=== PATIENT | female | born 1940 | race Caucasian/White ===

== ENCOUNTER 2019-06-25 19:33 | Observation (INO) ==
[2019-06-25 20:18] LABS: Basophils # (auto) 0.01 K/uL (0-0.2); Basophils % (auto) 0.1 %; Eosinophils # (auto) 0.15 K/uL (0-0.5); Eosinophils % (auto) 1.1 %; Hematocrit (blood only) 34.4 % (37-47); Immature Granulocytes # (auto) 0.03 K/uL (0.00-0.02); Immature Granulocytes % (auto) 0.2 %; Lymphocytes # (auto) 3.46 K/uL (1.2-3.4); Lymphocytes % (auto) 25.4 %; Mean Corpuscular Hemoglobin 35.9 pg (25-34); Mean Corpuscular Hgb Conc 34.9 g/dL (32-36); Mean Platelet Volume 10.1 fL (7.4-10.4); Monocytes # (auto) 1.78 K/uL (0.11-0.59); Monocytes % (auto) 13.1 %; Neutrophils # (auto) 8.17 K/uL (1.4-6.5); Neutrophils % (auto) 60.1 %; Platelet Count 190 K/uL (130-400); RDW Coefficient of Variation 14.3 % (11.5-14.5); RDW Standard Deviation 53.9 fL (36.4-46.3); Red Blood Count 3.34 M/uL (4.2-5.4)
--- NOTE | 2019-06-25 20:24 | Emergency Department Note ---
Entered by Jonathan Gonzales acting as a scribe for Cecil Rios MD History of Present Illness General Chief complaint: Foot Injury/Pain Stated complaint: RED,SWOLLEN FOOT, POSSIBLE INFECTION Time Seen by Provider: 06/25/19 19:44 Source: patient and family () Limitations: no limitations History of Present Illness Location: foot (left) Pain Consistency: + constant Quality: + other (red and sore) Associated symptoms: + denies other symptoms (abdominal pain) and + cough; no chest pain, no fever/chills (feveers) and no shortness of breath The patient is a 79 year old female who presents to the Emergency Room with complaints of constant red foot redness. The patient's states the patient has peripheral neuropathy and notes it is idiopathic. The patient states she does not feel her legs. She notes she has been walking a lot. She states she had some skin that was sloughing off and notes she peeled it off. She states she has been using Neosporin on her left leg. She states she has been coughing. She states she has a permanent UTI and notes she was taken off antibiotics because her physician was worried she would get C-Diff. She states she has never had C- Diff before. The patient states she has A-Fib, but she was told to stop taking Eliquis because she has frequent falls. The patient denies having fevers, abdominal pain, chest pain, and SOB. She states she has an appointment with her hotel desk clerk on Thursday. She states she intermittently gets short-lived hot flashes and states that has been going on for a while. She states she had CHF a year and half ago. Home Medications Home Medications Medication Instructions Recorded Confirmed Type albuterol sulfate 2 puff INHALATION QID 06/25/19 06/25/19 History aspirin [Aspir-Low] 81 mg PO DAILY 06/25/19 06/25/19 History conjugated estrogens [Premarin] 0.625 mg PO DAILY 06/25/19 06/25/19 History diltiazem HCl [Cartia XT] 120 mg PO DAILY 06/25/19 06/25/19 History furosemide 20 mg PO BID 06/25/19 06/25/19 History lisinopril [Zestril] 5 mg PO DAILY 06/25/19 06/25/19 History magnesium oxide 400 mg PO BID 06/25/19 06/25/19 History metoprolol succinate [Toprol XL] 25 mg PO DAILY 06/25/19 06/25/19 History omeprazole 20 mg PO DAILY 06/25/19 06/25/19 History polysaccharide iron complex 150 mg PO DAILY 06/25/19 06/25/19 History [Ferrex 150] ropinirole [Requip] 0.5 mg PO HS 06/25/19 06/25/19 History tramadol [Ultram] 50 mg PO Q6 06/25/19 06/25/19 History Allergies Allergy/AdvReac Type Severity Reaction Status Date / Time Penicillins Allergy Unknown RASH Verified 06/25/19 20:27 Sulfa (Sulfonamide Allergy Unknown RASH Verified 06/25/19 20:27 Antibiotics) oxycodone AdvReac Unknown "A BAD Verified 06/25/19 20:27 TRIP" Urea Allergy Unknown RASH Uncoded 06/25/19 20:27 Past Med/Surg History Medical History Asthma (Chronic) Hypertension (Chronic) Osteoarthritis (Chronic) Peripheral neuropathy Heath syndrome (Chronic) Surgical History History of hysterectomy (Chronic) History of laparotomy (Chronic) "for ruptured ovarian cyst" History of tubal ligation (Chronic) Social History 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 and A total of 10 systems reviewed and were otherwise negative Physical Exam Vital Signs Vital Signs - 24 hr 06/25/19 19:36 06/25/19 21:16 Temperature 36.9 C Temperature Source Oral Pulse Rate 100 H Pulse Rate [Bilateral] 88 Pulse Rhythm [Bilateral] Regular Pulse Strength [Bilateral] Normal Respiratory Rate 18 18 Respiratory Effort / Characteristics Non-Labored Spontaneous Non-Labored Spontaneous Respiratory Depth Normal Normal Respiratory Pattern Regular Regular Blood Pressure 146/81 H Blood Pressure [Left Arm] 124/68 Blood Pressure Mean 102 Blood Pressure Mean [Left Arm] 86 Blood Pressure Position Sitting Blood Pressure Position [Left Arm] Lying Pulse Oximetry 98 98 Oxygen Delivery Method Room Air Room Air Sepsis Recent Fever Within 48 Hours No Sepsis Action Taken by Nursing No Action Required General: Non-ill appearing older female in no acute distress. HEENT: Normal cephalic atraumatic. Pupils are equal round and reactive to light. Extraocular movements are intact. Oropharynx is pink with moist mucous membranes. No swelling of the mouth lips or tongue. Neck: Supple with a midline trachea. No meningeal signs or stiffness, no JVD or bruits. No Stridor. Chest: Clear to auscultation bilaterally. No wheezes or rhonchi. No increased work of breathing. Heart: regular rate and rhythm. Abdomen: Soft nontender, nondistended without rebound guarding or rigidity. Extremities: No cyanosis clubbing or edema. No calf tenderness or asymmetry. Left great toe has a large black scab on the tip of the foot that is red and swollen into the calf. Good cap refill. Spine/Back. Non tender to palpation. No CVA tenderness Skin: Good turgor without rashes. Neurologic exam: Cranial nerves two through 12 are intact. Motor and sensation are intact and symmetrical throughout. Course Course 1944: The patient was evaluated in room A11B, and a complete history and phys ical examination were performed. 2051: I spoke to the patient's who is a physician. He agrees with the plan. 2104: I discussed the patient's case with Dr. Mcneil - [facility]. He will evaluate the patient for further management Administered Medications Estrogens Conjugated (Premarin) 0.625 mg PO DAILY ZULEIKA Stop: 07/25/19 22:44 Last Admin: 06/25/19 23:46 Dose: 0.625 mg Documented by: [id number] Ropinirole HCl (Requip) 0.5 mg PO HS ZULEIKA Stop: 07/25/19 22:44 Last Admin: 06/25/19 23:46 Dose: 0.5 mg Documented by: [id number] Tramadol HCl (Ultram) 50 mg PO Q6 PRN PRN Reason: pain Stop: 07/26/19 00:00 Last Admin: 06/25/19 23:52 Dose: 50 mg Documented by: [id number] Discontinued Medications Sodium Chloride (Nss 1000ml) 1,000 mls @ 999 mls/hr IV .Q1H1M ONE Stop: 06/25/19 21:56 Last Infusion: 06/25/19 22:10 Dose: 0 mls/hr Documented by: [id number] Admin: 06/25/19 21:09 Dose: 999 mls/hr Documented by: [id number] Cefepime HCl (Maxipime) 2,000 mg in 20 mls @ 5 mls/min IV NOW STA Stop: 06/25/19 21:01 Last Admin: 06/25/19 21:09 Dose: 5 mls/min Documented by: [id number] Medical Decision Making Differential Diagnosis Differential Diagnosis includes but is not limited to cellulitis, osteomyelitis, sepsis, DVT, and electrolyte or metabolic abnormality. Medical Records Attestation: I reviewed the patient's medical records. Home Medications Current Medication List: was personally reviewed by me Laboratory Data Attestation: I reviewed the patient's lab results. Result diagrams: 06/25/19 20:10 06/25/19 20:10 Lab Results 06/25/19 06/25/19 06/25/19 Range/Units 20:10 20:10 20:10 WBC 13.60 H (4.8-10.8) K/uL RBC 3.34 L (4.2-5.4) M/uL Hgb 12.0 (12.0-16.0) g/dL Hct 34.4 L (37-47) % MCV 103.0 H (80-100) fL MCH 35.9 H (25-34) pg MCHC 34.9 (32-36) g/dL RDW Std Deviation 53.9 H (36.4-46.3) fL RDW Coeff of Augie 14.3 (11.5-14.5) % Plt Count 190 (130-400) K/uL MPV 10.1 (7.4-10.4) fL Immature Gran % (Auto) 0.2 % Neut % (Auto) 60.1 % Lymph % (Auto) 25.4 % [place] % (Auto) 13.1 % Eos % (Auto) 1.1 % Baso % (Auto) 0.1 % Immature Gran # (Auto) 0.03 H (0.00-0.02) K/uL Neut # (Auto) 8.17 H (1.4-6.5) K/uL Lymph # (Auto) 3.46 H (1.2-3.4) K/uL [place] # (Auto) 1.78 H (0.11-0.59) K/uL Eos # (Auto) 0.15 (0-0.5) K/uL Baso # (Auto) 0.01 (0-0.2) K/uL PT 10.1 (9.0-12.0) Seconds INR 1.0 (0.9-1.1) APTT 22.5 (21.0-31.0) Seconds PTT Ratio 0.8 Sodium 135 L (136-145) mmol/L Potassium 3.8 (3.5-5.1) mmol/L Chloride 101 (98-107) mmol/L Carbon Dioxide 26 (21-32) mmol/L Anion Gap 8.0 (3-11) BUN 13 (7-18) mg/dl Creatinine 1.12 (0.6-1.2) mg/dl Est Cr Clr Drug Dosing 37.4 ml/min Est GFR ( Amer) 54.5 Est GFR (Non-Af Amer) 47.0 BUN/Creatinine Ratio 11.7 (10-20) Glucose 102 H (70-99) mg/dl Lactate (0.4-2.0) mmol/L Calcium 8.2 L (8.5-10.1) mg/dl Magnesium 1.7 L (1.8-2.4) mg/dl Total Bilirubin 0.4 (0.2-1) mg/dl AST 16 (15-37) U/L ALT 12 (12-78) U/L Alkaline Phosphatase 123 H (45-117) U/L Total Protein 6.6 (6.4-8.2) gm/dl Albumin 2.7 L (3.4-5.0) gm/dl Globulin 3.9 (2.5-4.0) gm/dl Albumin/Globulin Ratio 0.7 L (0.9-2) /10/09 Range/Units 20:10 WBC (4.8-10.8) K/uL RBC (4.2-5.4) M/uL Hgb (12.0-16.0) g/dL Hct (37-47) % MCV (80-100) fL MCH (25-34) pg MCHC (32-36) g/dL RDW Std Deviation (36.4-46.3) fL RDW Coeff of Augie (11.5-14.5) % Plt Count (130-400) K/uL MPV (7.4-10.4) fL Immature Gran % (Auto) % Neut % (Auto) % Lymph % (Auto) % [place] % (Auto) % Eos % (Auto) % Baso % (Auto) % Immature Gran # (Auto) (0.00-0.02) K/uL Neut # (Auto) (1.4-6.5) K/uL Lymph # (Auto) (1.2-3.4) K/uL [place] # (Auto) (0.11-0.59) K/uL Eos # (Auto) (0-0.5) K/uL Baso # (Auto) (0-0.2) K/uL PT (9.0-12.0) Seconds INR (0.9-1.1) APTT (21.0-31.0) Seconds PTT Ratio Sodium (136-145) mmol/L Potassium (3.5-5.1) mmol/L Chloride (98-107) mmol/L Carbon Dioxide (21-32) mmol/L Anion Gap (3-11) BUN (7-18) mg/dl Creatinine (0.6-1.2) mg/dl Est Cr Clr Drug Dosing ml/min Est GFR ( Amer) Est GFR (Non-Af Amer) BUN/Creatinine Ratio (10-20) Glucose (70-99) mg/dl Lactate 2.1 H* (0.4-2.0) mmol/L Calcium (8.5-10.1) mg/dl Magnesium (1.8-2.4) mg/dl Total Bilirubin (0.2-1) mg/dl AST (15-37) U/L ALT (12-78) U/L Alkaline Phosphatase (45-117) U/L Total Protein (6.4-8.2) gm/dl Albumin (3.4-5.0) gm/dl Globulin (2.5-4.0) gm/dl Albumin/Globulin Ratio (0.9-2) Imaging Data Radiologist's Impression: Radiology results as stated below per my review and the radiologist's interpretation: XR foot LT min 3V routine CLINICAL HISTORY: eval for osteo left great toe. Left first toe pain. COMPARISON STUDY: None. FINDINGS: Mass or calcifications are noted. No acute fracture or dislocation within the left foot. There is diffuse soft tissue swelling within the lower leg and foot. Small plantar heel spur. The Lisfranc joint is well aligned. Soft tissue swelling within the first toe. No underlying bony destruction to suggest osteomyelitis. Moderate osteoarthritis at the first MTP joint. IMPRESSION: Soft tissue swelling within the left lower leg, foot, and first toe. No underlying bony destruction to suggest osteomyelitis. ACT 112: Negative or not required by law. Electronically signed by: Luis A Mata M.D. 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 eval for dvt COMPARISON STUDY: None. FINDINGS: There is normal compressibility, flow, and augmentation within the left lower extremity deep venous system. Subcutaneous edema within the left calf. IMPRESSION: No DVT within the left lower extremity. ACT 112: Negative or not required by law. Electronically signed by: Luis A Mata M.D. 06/25/2019 9:07 PM ECG Data Attestation: I personally reviewed and interpreted this ECG as follows: Rate (beats per minute): 87 ECG Intervals/blocks: + Normal QRS, + Normal QT, + Normal NE and + Normal QT-c ECG ST segments: no ST depression and no ST elevation ECG Findings: + PACs Comparison ECG Date: no prior available Blood Pressure Blood Pressure Findings: Elevated blood pressure Blood Pressure Disposition: further management by hospitalist [facility] Narrative This patient comes in as described above. She has a red swollen foot and leg w ith and also a large scab/eschar on the tip of her great toe. she has idiopathic neuropathy and cannot feel any of this and her who is a physician feels that she has been walking around with her shoe rubbing. She does not have any systemic complaints at present . She is on no blood thinners. She denies any fall or trauma. Given the redness and swelling. I was concerned for cellulitis osteomyelitis and possibly DVT as well I did order ultrasound as well as multiple blood testing and an EKG. She does have a history of A. fib in the past but she is not in A. fib now and has no ischemic changes. She does have an elevated white count as well as a mildly elevated lactic acid of 2.1. I did give her cefepime 2 g IV. She does have a penicillin allergy where she got a rash without anaphylaxis but her believes she has had cephalosporins without difficulty before. Her ultrasound of her leg does not show any evidence of DVT. Her x-ray of her foot does not show any definite osteomyelitis. Given her cellulitis and swelling as well as concern for deeper infection as well as elevated white count and lactic acid and concern for sepsis, I do think she needs to be admitted/observed. She was given IV saline bolus and I did consult the hospitalist to see her in the ER. Impression & Plan Sepsis, Cellulitis of left leg, Neuropathy, Left leg swelling Discharge Plan Visit Data *Final* Discharge Date/Time: 06/25/19 22:27 Chief Complaint: Foot Injury/Pain Stated Complaint: RED,SWOLLEN FOOT, POSSIBLE INFECTION ED Provider: Cecil Rios Discharge Problem: Sepsis, Cellulitis of left leg, Neuropathy, Left leg swelling Patient Disposition: Admitted As Inpatient Discharge Instructions Interventions: ED Discharge Assessment Last Done: 06/25/19 22:27 Discharge Problem: Sepsis Qualifiers: Sepsis type: sepsis due to unspecified organism Sepsis acute organ dysfunction status: unspecified Qualified Code(s): A41.9 - Sepsis, unspecified organism The scribe's documentation has been prepared under my direction and personally reviewed by me in its entirety. I confirm that the note above accurately reflects all work, treatment, procedures, and medical decision making performed by me.
[2019-06-25 20:29] LABS: Partial Thromboplastin Ratio 0.8; Partial Thromboplastin Time 22.5 Seconds (21.0-31.0); Prothrombin Time 10.1 Seconds (9.0-12.0)
[2019-06-25 20:35] LABS: Albumin Level 2.7 gm/dl (3.4-5.0); BUN Creatinine Ratio 11.7 (10-20); Calcium 8.2 mg/dl (8.5-10.1); Creatinine Clr Calc Pharmacy 37.4 ml/min; Est GFR (African American) 54.5; Magnesium 1.7 mg/dl (1.8-2.4); Potassium 3.8 mmol/L (3.5-5.1)
[2019-06-25 20:38] LABS: Albumin Globulin Ratio 0.7 (0.9-2); Bilirubin,Total 0.4 mg/dl (0.2-1); Globulin 3.9 gm/dl (2.5-4.0); Total Protein 6.6 gm/dl (6.4-8.2)
[2019-06-25] MEDS ORDERED: SODIUM CHLORIDE 0.9% 1000ML 1,000 ML IV ONE (20:56)
[2019-06-25] MEDS ORDERED: CEFEPIME 2,000 MG/20 ML VIAL IV STA (20:58)
--- NOTE | 2019-06-25 21:08 | Ultrasound Report ---
LEFT LOWER EXTREMITY VENOUS DOPPLER HISTORY: Left leg swelling. eval for dvt COMPARISON STUDY: None. FINDINGS: There is normal compressibility, flow, and augmentation within the left lower extremity vicky p venous system. Subcutaneous edema within the left calf. IMPRESSION: No DVT within the left lower extremity. ACT 112: Negative or not required by law. Electronically signed by: Luis A Mata M.D. 06/25/2019 9:07 PM
--- NOTE | 2019-06-25 21:42 | XRay Report ---
XR foot LT min 3V routine CLINICAL HISTORY: eval for osteo left great toe. Left first toe pain. COMPARISON STUDY: None. FINDINGS: Mass or calcifications are noted. No acute fracture or dislocation within the left foot. Th ere is diffuse soft tissue swelling within the lower leg and foot. Small plantar heel spur. The Lisfr anc joint is well aligned. Soft tissue swelling within the first toe. No underlying bony destruction to suggest osteomyelitis. Moderate osteoarthritis at the first MTP joint. IMPRESSION: Soft tissue swelling within the left lower leg, foot, and first toe. No underlying bony destruction to suggest osteomyelitis. ACT 112: Negative or not required by law. Electronically signed by: Luis A Mata M.D. 06/25/2019 9:41 PM
[2019-06-25] MEDS ORDERED: ONDANSETRON INJ 2 MG/ML 2 ML VIAL IV PRN (22:45)
[2019-06-25] MEDS ORDERED: POLYETHYLENE (MIRALAX) 17 GM PACK PO PRN (22:45)
--- NOTE | 2019-06-25 22:48 | History & Physical Report ---
Date of Service June 25, 2019 Assessment & Plan (1) Cellulitis of left le-year-old female with history of hypertension, atrial fibrillation, CVA/TIA, osteoarthritis, lumbar disc degeneration, idiopathic bilateral neuropathy presenting with 1 week of swelling redness of her left lower extremity. She has had a nonhealing ulcer on her left first toe for approximately 1 month. Cellulitis left lower extremity Patient was initially tachycardic with a lactate of 2.1, white count of 13.6. Patient was afebrile, nontoxic. Received fluids in the ED. Patient does not appear septic or bacteremic, follow blood cultures nonetheless, repeat lactate with morning labs No history of diabetes, no pseudomonal coverage necessary at this time at this time Received cefepime in the ED, will continue with ceftriaxone in the morning Wound care consult, wound cultures. Broaden coverage if not improving Chronic nonhealing ulcer, eschar left first toe Patient has a history of atrial fibrillation, recently stopped Eliquis secondary to chronic epistaxis Ordered articular Dopplers to rule out arterial stenosis Venous Dopplers negative for DVT Foot x-ray not concerning for osteomyelitis History of atrial fibrillation Continue aspirin, diltiazem, metoprolol GERD Continue omeprazole Restless leg/neuropathy bilateral lower extremity Continue Requip, Ultram Asthma Continue albuterol as needed DVT prophylaxis Deferring chemical prophylaxis considering history of chronic epistaxis Continue SCDs CODE STATUS Full Diet Heart healthy (2) Hypertension: (3) Heath syndrome: (4) Osteoarthritis: (5) Peripheral neuropathy: History of Present Illness Primary Care Provider: Haresh Mirza MD 79-year-old female with history of atrial fibrillation, CVA/TIA, chronic epistaxis, idiopathic neuropathy, osteoarthritis, lumbar disc degeneration, hypertension presents with redness, warmth and swelling of her left lower extremity. This started approximately 1 week ago and became significantly red and swollen over the past day. She states that for the past month she has had a ulcer on the distal end of her left big toe. She has been cleaning it and tending to it, but has not had any treatment. Patient denies any pain at the site and she denies any fevers over the course of the week. She has chronic neuropathy in bilateral lower extremitiespredominantly numbness with some tingling. The patient does note that she recently stopped Eliquis, approximately 6 months ago secondary to chronic epistaxis. She is been taking aspirin. Allergies Allergy/AdvReac Type Severity Reaction Status Date / Time Penicillins Allergy Unknown RASH Verified 06/25/19 20:27 Sulfa (Sulfonamide Allergy Unknown RASH Verified 06/25/19 20:27 Antibiotics) oxycodone AdvReac Unknown "A BAD Verified 06/25/19 20:27 TRIP" Urea Allergy Unknown RASH Uncoded 06/25/19 20:27 Home Medications Home Medications Medication Instructions Recorded Confirmed Type albuterol sulfate 2 puff INHALATION QID 06/25/19 06/25/19 History aspirin [Aspir-Low] 81 mg PO DAILY 06/25/19 06/25/19 History conjugated estrogens [Premarin] 0.625 mg PO DAILY 06/25/19 06/25/19 History diltiazem HCl [Cartia XT] 120 mg PO DAILY 06/25/19 06/25/19 History furosemide 20 mg PO BID 06/25/19 06/25/19 History lisinopril [Zestril] 5 mg PO DAILY 06/25/19 06/25/19 History magnesium oxide 400 mg PO BID 06/25/19 06/25/19 History metoprolol succinate [Toprol XL] 25 mg PO DAILY 06/25/19 06/25/19 History omeprazole 20 mg PO DAILY 06/25/19 06/25/19 History polysaccharide iron complex 150 mg PO DAILY 06/25/19 06/25/19 History [Ferrex 150] ropinirole [Requip] 0.5 mg PO HS 06/25/19 06/25/19 History tramadol [Ultram] 50 mg PO Q6 06/25/19 06/25/19 History Past Med/Surg History Medical History Asthma (Chronic) Hypertension (Chronic) Osteoarthritis (Chronic) Peripheral neuropathy Heaht syndrome (Chronic) Surgical History History of hysterectomy (Chronic) History of laparotomy (Chronic) "for ruptured ovarian cyst" History of tubal ligation (Chronic) Social History 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 Beliefs That Will Affect Care: None Current Living Situation: Alone Feels Safe at Home: Yes Safety Concerns: Feels Safe At This Time Smoking Status: Former smoker Hx Alcohol Use: Yes Alcohol type: wine, hard liquor and other Hx Substance Use: No Review of Systems Constitutional: no fever, no chills and no sweats Ear, Nose, Mouth, Throat: no nasal congestion, no epistaxis and no sinus pain/pressure Respiratory: no cough, no dyspnea and no wheezing Cardiovascular: + edema; no chest pain and no palpitations Gastrointestinal: no abdominal pain, no nausea and no vomiting Musculoskeletal: no joint pain, no myalgia and no body aches Integumentary: + skin ulcer and + erythema Physical Exam Constitutional: WD/WN, vitals as above Eyes: PERRL, conjunctivae normal, anicteric sclerae ENMT: external ear and nose normal, oropharynx normal Neck: trachea midline, no thyromegaly Respiratory: normal respiratory effort, lungs clear to auscultation Cardiovascular: RRR, no murmur, no edema Gastrointestinal (Abdomen): normal bowel sounds, soft, nontender, no hepatosplenomegaly Musculoskeletal: no cyanosis or clubbing, extremities motor strength 5/5 Skin: Left lower extremityblack eschar distal end of first digit, erythema and swelling of the left foot extending to mid calf Neurologic: patellar DTR's 2+ bilat, sensation intact Psychiatric: A+Ox3, euthymic affect Results & Data Vital Signs (Past 12 Hours) Vital Signs Temp Pulse Pulse Resp BP BP Pulse Ox 06/25/19 22:11 94 H 18 141/82 H 98 06/25/19 21:16 88 18 124/68 98 06/25/19 19:36 36.9 C 100 H 18 146/81 H 98 Code Status & VTE Plan VTE Prophylaxis Plan VTE Prophylaxis will be ordered: Yes Supervising Physician Co-Signing Physician Notes Patient was seen and examined by me personally. I reviewed the chart, the orders and discussed the case in detail with Dr. Landon Almanzar MD . I read this H&P and agree with its contents to entirety.
[2019-06-25] MEDS: ROPINIROLE HCL 0.25 MG TABLET PO SCH (23:46)
[2019-06-25] MEDS: ESTROGENS, CONJUGATED 0.625 MG TAB PO SCH (23:46)
[2019-06-25] MEDS: TRAMADOL HCL 50 MG TABLET PO PRN (23:52)
[2019-06-26] MEDS: ASPIRIN 81 MG ECTAB PO SCH ×2 (00:32→19:44)
[2019-06-26] MEDS ORDERED: HydrALAZINE HCL 20 MG/ML VIAL IV PRN (00:39)
--- NOTE | 2019-06-26 00:41 | Billing Data ---
Date of Service June 25, 2019 Coding Level of Care Code 17047 OBS Care - Level 3
[2019-06-26 05:39] LABS: Basophils # (auto) 0.01 K/uL (0-0.2); Basophils % (auto) 0.1 %; Eosinophils # (auto) 0.17 K/uL (0-0.5); Hematocrit (blood only) 32.2 % (37-47); Hemoglobin 10.9 g/dL (12.0-16.0); Immature Granulocytes # (auto) 0.03 K/uL (0.00-0.02); Immature Granulocytes % (auto) 0.4 %; Lymphocytes # (auto) 3.41 K/uL (1.2-3.4); Mean Corpuscular Hemoglobin 35.3 pg (25-34); Mean Corpuscular Hgb Conc 33.9 g/dL (32-36); Mean Corpuscular Volume 104.2 fL (80-100); Mean Platelet Volume 9.6 fL (7.4-10.4); Monocytes % (auto) 15.2 %; Neutrophils # (auto) 3.61 K/uL (1.4-6.5); Neutrophils % (auto) 42.3 %; Platelet Count 160 K/uL (130-400); RDW Coefficient of Variation 14.3 % (11.5-14.5); RDW Standard Deviation 54.2 fL (36.4-46.3); Red Blood Count 3.09 M/uL (4.2-5.4); White Blood Count 8.53 K/uL (4.8-10.8)
[2019-06-26 06:04] LABS: BUN Creatinine Ratio 14.3 (10-20); Calcium 7.7 mg/dl (8.5-10.1); Creatinine Clr Calc Pharmacy 43.5 ml/min; Est GFR (African American) 79.4; Est GFR (Non-African American) 68.5; Potassium 3.7 mmol/L (3.5-5.1)
[2019-06-26] MEDS: TRAMADOL HCL 50 MG TABLET PO PRN ×2 (06:26→23:37)
--- NOTE | 2019-06-26 06:58 | Ultrasound Report ---
LEFT LOWER EXTREMITY ARTERIAL DOPPLER ULTRASOUND CLINICAL HISTORY: cellulitis black eschar, concern for embolism COMPARISON STUDY: No previous studies for comparison. TECHNIQUE: Grayscale, color and duplex Doppler sonography of the arterial system of the left lower ex tremity was performed. Patient was unable to tolerate ankle to brachial indices. FINDINGS: No elevated velocities were identified within the left lower extremity. There was triphasic flow within the left common femoral and superficial femoral arteries. There was monophasic flow with in left popliteal, anterior tibial, posterior tibial, peroneal and dorsalis pedis vessels. Mild ather osclerotic plaque was noted. IMPRESSION: 1. Triphasic flow within left common femoral and superficial femoral arteries with monophasic flow wi thin the left calf vessels. Mild atherosclerotic plaque. Patent vessels although small vessel occlusi on may be occult by sonography. 2. No evidence for a hemodynamically significant stenosis within the left lower extremity. ACT 112: Negative or not required by law. Electronically signed by: Abiel Massey M.D. 06/26/2019 6:56 AM
[2019-06-26] MEDS: METOPROLOL SUCC 25MG EXT REL TAB PO SCH (08:19)
[2019-06-26] MEDS: IRON POLYSACCHARIDE COMPLEX 150 MG CAPSULE PO SCH (08:19)
[2019-06-26] MEDS: lisinopriL 5 MG TAB PO SCH (08:19)
[2019-06-26] MEDS: ESTROGENS, CONJUGATED 0.625 MG TAB PO SCH ×2 (08:19→19:44)
[2019-06-26] MEDS: dilTIAZem HCL 120 MG CAPCR PO SCH (08:19)
[2019-06-26] MEDS: MAGNESIUM OXIDE 400 MG TAB PO SCH ×2 (08:19→19:43)
[2019-06-26] MEDS: PANTOprazole 40 MG TAB PO SCH (08:19)
[2019-06-26] MEDS: cefTRIAXone SODIUM 2,000 MG in DEXTROSE 5% 50 ML IV SCH (08:20)
[2019-06-26] MEDS: ALBUTEROL HFA 8 GM INHALER INH SCH ×5 (08:20→19:44)
[2019-06-26] MEDS ORDERED: FUROSEMIDE 20 MG TAB PO SCH (09:00)
--- NOTE | 2019-06-26 09:12 | Hospitalist Progress Note ---
Date of Service June 26, 2019 Assessment & Plan (1) Cellulitis of left le-year-old female with history of hypertension, atrial fibrillation, CVA/TIA, osteoarthritis, lumbar disc degeneration, idiopathic bilateral neuropathy presenting with 1 week of swelling redness of her left lower extremity. She has had a nonhealing ulcer on her left first toe for approximately 1 month. Cellulitis left lower extremity Patient was initially tachycardic with a lactate of 2.1, white count of 13.6. Patient was afebrile, nontoxic. Received fluids in the ED. WBC improved this AM to WNL Patient does not appear septic or bacteremic, follow blood cultures nonetheles s, repeat lactate with morning labs No history of diabetes, no pseudomonal coverage necessary at this time at this time Received cefepime in the ED, will continue with ceftriaxone\ Wound care consult, wound cultures. Broaden coverage if not improving but appears improving Chronic nonhealing ulcer, eschar left first toe Patient has a history of atrial fibrillation, recently stopped Eliquis secondary to chronic epistaxis Ordered articular Dopplers that ruled out arterial stenosis Venous Dopplers negative for DVT Foot x-ray not concerning for osteomyelitis -Consider debridement History of atrial fibrillation Continue aspirin, diltiazem, metoprolol GERD Continue omeprazole Restless leg/neuropathy bilateral lower extremity Continue Requip, Ultram Asthma Continue albuterol as needed DVT prophylaxis Deferring chemical prophylaxis considering history of chronic epistaxis Continue SCDs CODE STATUS Full Diet Heart healthy (2) Hypertension: (3) Heath syndrome: (4) Osteoarthritis: (5) Peripheral neuropathy: Supervising Physician Co-Signing Physician Notes Attending attestation Pt seen and examined in concert with Dr. Duron. In agreement with the documented findings as noted in the resident documentation with any exceptions or additions as noted here. Improving RLE swelling and redness subjectively. On examination, S1/S2 nl RRR no MCG. CTAB. Abd NT/ND BS +ve, RLE erythema across the forefoot stemming from the distal tip of the great toe with visible eschar Cellulitis of L foot with eschar - improving - continue ceftriaxone and monitor for improvement. Would consider evaluation for debridement of eschar. BCx pending. Atrial fibrillation - continue ASA, diltiazem, metoprolol Else see resident documentation as noted. Subjective Francheska notes history of neuropathy in both feet and hands, thus she doesn't notice any pain. She notes that appears her redness has improved with her left foot. She denies any nausea, vomiting, diarrhea. Physical Exam Constitutional: WD/WN, vitals as above Eyes: PERRL, conjunctivae normal, anicteric sclerae ENMT: external ear and nose normal, oropharynx normal Neck: normal visual inspection and trachea midline Respiratory: normal respiratory effort, lungs clear to auscultation Cardiovascular: Rate/Rhythm: regular rate and + irregularly irregular Musculoskeletal: Head/Neck/Chest: normocephalic and head atraumatic Skin: left distal foot from midfoot to left great toe with swelling, erythema, and increased warmth; left great toe with distal chronic appearing ulcerative wound without oozing Neurologic: moves all extremities and awake Psychiatric: A+Ox3, euthymic affect Results & Data Vital Signs (Past 12 Hours) Vital Signs Temp Pulse Pulse Resp BP Pulse Ox 06/26/19 07:17 36.4 C L 72 16 136/83 95 06/26/19 06:27 158/86 H 06/25/19 22:45 36.9 C 79 79 18 168/92 H 97 06/25/19 22:11 94 H 18 141/82 H 98 06/25/19 21:16 88 18 124/68 98 Resident Activity Tracking Resident Involvement: Resident Care Provided Care Provided: Adult Hospital Medicine
--- NOTE | 2019-06-26 13:04 | Electrocardiogram Report ---
Test Reason : Blood Pressure : / mmHG Vent. Rate : 087 BPM Atrial Rate : 087 BPM P-R Int : 176 ms QRS Dur : 078 ms QT Int : 368 ms P-R-T Axes : 065 017 024 degrees QTc Int : 442 ms Sinus rhythm with Premature atrial complexes Otherwise normal ECG When compared with ECG of 29-JUL-2014 10:09, Premature atrial complexes are now Present Confirmed by Rommel Vargas ([id number]) on 06/26/2019 1:04:38 PM Referred By: REFERRED SELF Confirmed By:Rommel Vargas
[2019-06-26] MEDS: FUROSEMIDE 20 MG TAB PO SCH (17:03)
[2019-06-26] MEDS: ROPINIROLE HCL 0.25 MG TABLET PO SCH (19:44)
[2019-06-27] MEDS: ACETAMINOPHEN 325 MG TAB PO PRN (04:24)
[2019-06-27 06:15] LABS: Basophils # (auto) 0.01 K/uL (0-0.2); Basophils % (auto) 0.1 %; Eosinophils # (auto) 0.19 K/uL (0-0.5); Eosinophils % (auto) 2.6 %; Hematocrit (blood only) 30.7 % (37-47); Hemoglobin 10.3 g/dL (12.0-16.0); Immature Granulocytes # (auto) 0.03 K/uL (0.00-0.02); Immature Granulocytes % (auto) 0.4 %; Lymphocytes # (auto) 2.97 K/uL (1.2-3.4); Lymphocytes % (auto) 40.6 %; Mean Corpuscular Hemoglobin 35.3 pg (25-34); Mean Corpuscular Hgb Conc 33.6 g/dL (32-36); Mean Corpuscular Volume 105.1 fL (80-100); Mean Platelet Volume 10.1 fL (7.4-10.4); Monocytes # (auto) 1.06 K/uL (0.11-0.59); Monocytes % (auto) 14.5 %; Neutrophils # (auto) 3.05 K/uL (1.4-6.5); Neutrophils % (auto) 41.8 %; Platelet Count 162 K/uL (130-400); RDW Coefficient of Variation 14.1 % (11.5-14.5); RDW Standard Deviation 53.6 fL (36.4-46.3); Red Blood Count 2.92 M/uL (4.2-5.4); White Blood Count 7.31 K/uL (4.8-10.8)
[2019-06-27 06:51] LABS: BUN Creatinine Ratio 10.1 (10-20); Calcium 8.1 mg/dl (8.5-10.1); Creatinine Clr Calc Pharmacy 37.1 ml/min; Est GFR (African American) 65.7; Est GFR (Non-African American) 56.6; Potassium 3.7 mmol/L (3.5-5.1)
[2019-06-27] MEDS: TRAMADOL HCL 50 MG TABLET PO PRN ×2 (07:08→16:25)
--- NOTE | 2019-06-27 08:14 | Hospitalist Progress Note ---
Date of Service June 27, 2019 Assessment & Plan (1) Cellulitis of left le-year-old female with history of hypertension, atrial fibrillation, CVA/TIA, osteoarthritis, lumbar disc degeneration, idiopathic bilateral neuropathy presenting with 1 week of swelling redness of her left lower extremity. She has had a nonhealing ulcer on her left first toe for approximately 1 month. Cellulitis left lower extremity Patient was initially tachycardic with a lactate of 2.1, white count of 13.6. Patient was afebrile, nontoxic. Received fluids in the ED. WBC improved this AM to WNL. Patient does not appear septic or bacteremic, follow blood cultures nonetheless, repeat lactate with morning labs WBC:13.6->8.53->7.31 ABX No history of diabetes, no pseudomonal coverage necessary at this time at this time Received cefepime in the ED Continue ceftriaxone day 2 of 7 IV antibiotics Wound care consult, wound cultures. ? need for Urgent debridement versus delayed as outpatient Chronic nonhealing ulcer, eschar left first toe Patient has a history of atrial fibrillation, recently stopped Eliquis secondary to chronic epistaxis Ordered articular Dopplers that ruled out arterial stenosis Venous Dopplers negative for DVT Foot x-ray not concerning for osteomyelitis -Consider debridement Wound care consulted History of atrial fibrillation Continue aspirin, diltiazem, metoprolol GERD Continue omeprazole Restless leg/neuropathy bilateral lower extremity Continue Requip, Ultram Asthma Continue albuterol as needed DVT prophylaxis Deferring chemical prophylaxis considering history of chronic epistaxis Continue SCDs CODE STATUS Full Diet Heart healthy FENa: Heart healthy Code Status: Full code DVT PPX: Chemical contraindicated secondary to history of chronic epistaxis mechanical SCDs in place PT/OT: Contraindicated at present Dispo: Home pending clinical improvement Misha Patel MD PGY 2, FCM This chart was completed utilizing [employer] voice recognition software. Grammatical errors, random word insertions, pronoun errors, and in complete sentences are an occasional consequence of the system. Any questions or concerns about the content, text, or information contained within the body of this dictation should be addressed directly to the physician for clarification. (2) Hypertension: (3) Heath syndrome: (4) Osteoarthritis: (5) Peripheral neuropathy: Supervising Physician Co-Signing Physician Notes I personally examined the patient and verified all turner points of history and exam, discussed case, and agree with decision making with Dr Patel. Feeling better. Leg pain much less. Toe looks about the same as its look for a little while to her. Notes that her who is a hospitalist was helping look after it, and it was not until recently that it was looking a lot worse. Awaiting wound care input. No fevers chills or sweats. Vitals noted, in general she is awake and alert pleasant no distress. HEENT normocephalic atraumatic mucous membranes are moist. Breathing unlabored no accessory muscle use. Foot shows great toe with dense thick eschar but only a little bit of dull resolving erythema on the dorsum of the foot which is nontender. No other tracking erythema, no rashes no pallor or icterus. Cellulitis of L foot with eschar - improving - continue ceftriaxone, await wound care input in regards to whether or not this needs debrided in the short-term or if local care will suffice. Likely will need formal wound follow-up as an outpatient either way, but awaiting input as far as the need for debridement prior to discharge. Given that the cellulitis is improved dramatically, anticipate she will be able to go home on an oral third-generation cephalosporin Atrial fibrillation - continue ASA, diltiazem, metoprololrate control is been reasonable otherwise as above Subjective Patient sitting upright in bed in no acute distress today. Patient reports no acute events overnight, tolerating her diet, voiding, stooling, sleeping. Patient reports her leg pain is improved although not back to baseline. Acute concerns at present relate to eschar on her toe needing debridement, all questions answered. Physical Exam Physical Exam: Constitutional: WD/WN, vitals as above Eyes: PERRL, conjunctivae normal, anicteric sclerae ENMT: external ear and nose normal, oropharynx normal Neck: normal visual inspection and trachea midline Respiratory: normal respiratory effort, lungs clear to auscultation Cardiovascular: Rate/Rhythm: regular rate and + irregularly irregular rhythm did not appreciate significant murmurs rubs or gallops Musculoskeletal: Head/Neck/Chest: normocephalic and head atraumatic Skin: left distal foot from midfoot to left great toe with swelling, erythema, and increased warmth; left great toe with distal chronic appearing ulcerative wound without oozing improving Neurologic: moves all extremities and awake Psychiatric: A+Ox3, euthymic affect Results & Data Vital Signs (Past 12 Hours) Vital Signs Temp Pulse Pulse Resp BP Pulse Ox 06/27/19 07:32 36.3 C L 69 18 166/88 H 97 06/26/19 23:54 144/74 H 06/26/19 23:20 36.8 C 74 18 166/92 H 96 Laboratory Results 06/27/19 06/27/19 Range/Units 05:52 05:52 WBC 7.31 (4.8-10.8) K/uL RBC 2.92 L (4.2-5.4) M/uL Hgb 10.3 L (12.0-16.0) g/dL Hct 30.7 L (37-47) % MCV 105.1 H (80-100) fL MCH 35.3 H (25-34) pg MCHC 33.6 (32-36) g/dL RDW Std Deviation 53.6 H (36.4-46.3) fL RDW Coeff of Augie 14.1 (11.5-14.5) % Plt Count 162 (130-400) K/uL MPV 10.1 (7.4-10.4) fL Immature Gran % (Auto) 0.4 % Neut % (Auto) 41.8 % Lymph % (Auto) 40.6 % [place] % (Auto) 14.5 % Eos % (Auto) 2.6 % Baso % (Auto) 0.1 % Immature Gran # (Auto) 0.03 H (0.00-0.02) K/uL Neut # (Auto) 3.05 (1.4-6.5) K/uL Lymph # (Auto) 2.97 (1.2-3.4) K/uL [place] # (Auto) 1.06 H (0.11-0.59) K/uL Eos # (Auto) 0.19 (0-0.5) K/uL Baso # (Auto) 0.01 (0-0.2) K/uL Sodium 139 (136-145) mmol/L Potassium 3.7 (3.5-5.1) mmol/L Chloride 105 (98-107) mmol/L Carbon Dioxide 27 (21-32) mmol/L Anion Gap 7.0 (3-11) BUN 10 (7-18) mg/dl Creatinine 0.96 (0.6-1.2) mg/dl Est Cr Clr Drug Dosing 37.1 ml/min Est GFR ( Amer) 65.7 Est GFR (Non-Af Amer) 56.6 BUN/Creatinine Ratio 10.1 (10-20) Glucose 99 (70-99) mg/dl Calcium 8.1 L (8.5-10.1) mg/dl Medications Administered Current Inpatient Medications Acetaminophen (Tylenol) 650 mg PO Q4H PRN PRN Reason: pain/fever Stop: 07/25/19 22:44 Last Admin: 06/27/19 04:24 Dose: 650 mg Documented by: Albuterol (Ventolin Hfa) 2 puffs INH QID [facility] Stop: 07/26/19 08:59 Last Admin: 06/27/19 08:54 Dose: 2 puffs Documented by: Aspirin (Ecotrin Ectab) 81 mg PO HS [facility] Stop: 07/25/19 23:29 Last Admin: 06/26/19 19:44 Dose: 81 mg Documented by: Diltiazem HCl (Cardizem Cd) 120 mg PO DAILY [facility] Stop: 07/26/19 08:59 Last Admin: 06/27/19 08:53 Dose: 120 mg Documented by: Estrogens Conjugated (Premarin) 0.625 mg PO HS [facility] Stop: 07/26/19 20:59 Last Admin: 06/26/19 19:44 Dose: 0.625 mg Documented by: Furosemide (Lasix) 20 mg PO BID17 [facility] Stop: 07/26/19 16:59 Last Admin: 06/27/19 08:53 Dose: 20 mg Documented by: Hydralazine HCl (Hydralazine Hcl) 10 mg IV Q4H PRN PRN Reason: Systolic BP > 160 or diastolic >95 Stop: 07/26/19 00:38 Ceftriaxone Sodium 2,000 mg/ (Dextrose) 70 mls @ 100 mls/hr IV DAILY [facility]; Protocol Stop: 07/06/19 08:59 Last Infusion: 06/27/19 09:33 Dose: Infused Documented by: Lisinopril (Zestril) 5 mg PO DAILY [facility] Stop: 07/26/19 08:59 Last Admin: 06/27/19 08:53 Dose: 5 mg Documented by: Magnesium Oxide (Mag-Ox) 400 mg PO BID [facility] Stop: 07/26/19 08:59 Last Admin: 06/27/19 08:54 Dose: 400 mg Documented by: Metoprolol Succinate (Toprol Xl) 25 mg PO DAILY [facility] Stop: 07/26/19 08:59 Last Admin: 06/27/19 08:54 Dose: 25 mg Documented by: Ondansetron HCl (Zofran) 4 mg IV Q6H PRN PRN Reason: Nausea Stop: 07/25/19 22:44 Pantoprazole Sodium (Protonix) 40 mg PO DAILY [facility] Stop: 07/26/19 08:59 Last Admin: 06/27/19 08:53 Dose: 40 mg Documented by: Polyethylene Glycol (Miralax Powder Packet) 17 gm PO DAILY PRN PRN Reason: Constipation Stop: 07/25/19 22:44 Polysaccharide Iron Complex (Niferex-150 W/Vit C Cap) 150 mg PO DAILY [facility] Stop: 07/26/19 08:59 Last Admin: 06/27/19 08:54 Dose: 150 mg Documented by: Ropinirole HCl (Requip) 0.5 mg PO HS [facility] Stop: 07/25/19 22:44 Last Admin: 06/26/19 19:44 Dose: 0.5 mg Documented by: Tramadol HCl (Ultram) 50 mg PO Q6 PRN PRN Reason: pain Stop: 07/26/19 00:00 Last Admin: 06/27/19 07:08 Dose: 50 mg Documented by: Resident Activity Tracking Resident Involvement: Resident Care Provided Care Provided: Adult Hospital Medicine
[2019-06-27] MEDS: cefTRIAXone SODIUM 2,000 MG in DEXTROSE 5% 50 ML IV SCH (08:49)
[2019-06-27] MEDS: lisinopriL 5 MG TAB PO SCH (08:53)
[2019-06-27] MEDS: FUROSEMIDE 20 MG TAB PO SCH ×2 (08:53→16:25)
[2019-06-27] MEDS: PANTOprazole 40 MG TAB PO SCH (08:53)
[2019-06-27] MEDS: dilTIAZem HCL 120 MG CAPCR PO SCH (08:53)
[2019-06-27] MEDS: MAGNESIUM OXIDE 400 MG TAB PO SCH ×2 (08:54→21:10)
[2019-06-27] MEDS: METOPROLOL SUCC 25MG EXT REL TAB PO SCH (08:54)
[2019-06-27] MEDS: IRON POLYSACCHARIDE COMPLEX 150 MG CAPSULE PO SCH (08:54)
[2019-06-27] MEDS: ALBUTEROL HFA 8 GM INHALER INH SCH ×4 (08:54→21:11)
--- NOTE | 2019-06-27 17:45 | Billing Data ---
Date of Service June 27, 2019 Coding Level of Care Code 72458 Subseq Hosp Care Lvl 2
[2019-06-27] MEDS: ROPINIROLE HCL 0.25 MG TABLET PO SCH (21:10)
[2019-06-27] MEDS: ASPIRIN 81 MG ECTAB PO SCH (21:10)
[2019-06-27] MEDS: ESTROGENS, CONJUGATED 0.625 MG TAB PO SCH (21:11)
[2019-06-28 07:11] LABS: Basophils # (auto) 0.01 K/uL (0-0.2); Basophils % (auto) 0.1 %; Eosinophils # (auto) 0.13 K/uL (0-0.5); Eosinophils % (auto) 1.6 %; Hematocrit (blood only) 30.8 % (37-47); Hemoglobin 10.4 g/dL (12.0-16.0); Immature Granulocytes # (auto) 0.02 K/uL (0.00-0.02); Immature Granulocytes % (auto) 0.2 %; Lymphocytes # (auto) 2.99 K/uL (1.2-3.4); Lymphocytes % (auto) 37.3 %; Mean Corpuscular Hemoglobin 35.4 pg (25-34); Mean Corpuscular Hgb Conc 33.8 g/dL (32-36); Mean Corpuscular Volume 104.8 fL (80-100); Monocytes # (auto) 1.07 K/uL (0.11-0.59); Monocytes % (auto) 13.4 %; Neutrophils # (auto) 3.79 K/uL (1.4-6.5); Neutrophils % (auto) 47.4 %; Platelet Count 165 K/uL (130-400); RDW Standard Deviation 53.6 fL (36.4-46.3); Red Blood Count 2.94 M/uL (4.2-5.4); White Blood Count 8.01 K/uL (4.8-10.8)
[2019-06-28] MEDS: TRAMADOL HCL 50 MG TABLET PO PRN ×2 (07:46→16:31)
[2019-06-28] MEDS: MAGNESIUM OXIDE 400 MG TAB PO SCH (08:04)
[2019-06-28] MEDS: PANTOprazole 40 MG TAB PO SCH (08:04)
[2019-06-28] MEDS: METOPROLOL SUCC 25MG EXT REL TAB PO SCH (08:05)
[2019-06-28] MEDS: FUROSEMIDE 20 MG TAB PO SCH ×2 (08:05→16:30)
[2019-06-28] MEDS: lisinopriL 5 MG TAB PO SCH (08:05)
[2019-06-28] MEDS: ALBUTEROL HFA 8 GM INHALER INH SCH ×3 (08:06→16:30)
[2019-06-28] MEDS: dilTIAZem HCL 120 MG CAPCR PO SCH (08:06)
[2019-06-28] MEDS: IRON POLYSACCHARIDE COMPLEX 150 MG CAPSULE PO SCH (08:06)
[2019-06-28] MEDS: cefTRIAXone SODIUM 2,000 MG in DEXTROSE 5% 50 ML IV SCH (08:12)
--- NOTE | 2019-06-28 12:00 | Discharge Summary ---
Date of Service June 28, 2019 Admission HPI Per Admitting Provider 79-year-old female with history of atrial fibrillation, CVA/TIA, chronic epistaxis, idiopathic neuropathy, osteoarthritis, lumbar disc degeneration, hypertension presents with redness, warmth and swelling of her left lower extremity. This started approximately 1 week ago and became significantly red and swollen over the past day. She states that for the past month she has had a ulcer on the distal end of her left big toe. She has been cleaning it and tending to it, but has not had any treatment. Patient denies any pain at the site and she denies any fevers over the course of the week. She has chronic neuropathy in bilateral lower extremitiespredominantly numbness with some tingling. The patient does note that she recently stopped Eliquis, approximately 6 months ago secondary to chronic epistaxis. She is been taking aspirin. Admission Exam Per Admitting Provider Constitutional: WD/WN, vitals as above Eyes: PERRL, conjunctivae normal, anicteric sclerae ENMT: external ear and nose normal, oropharynx normal Neck: trachea midline, no thyromegaly Respiratory: normal respiratory effort, lungs clear to auscultation Cardiovascular: RRR, no murmur, no edema Gastrointestinal (Abdomen): normal bowel sounds, soft, nontender, no hepatosplenomegaly Musculoskeletal: no cyanosis or clubbing, extremities motor strength 5/5 Skin: Left lower extremityblack eschar distal end of first digit, erythema and swelling of the left foot extending to mid calf Neurologic: patellar DTR's 2+ bilat, sensation intact Psychiatric: A+Ox3, euthymic affect Principal Diagnosis Left lower extremity cellulitis in the setting of chronic nonhealing ulcer with eschar on the left first toe Discharge Exam Constitutional: WD/WN, vitals as above Eyes: PERRL, conjunctivae normal, anicteric sclerae ENMT: external ear and nose normal, oropharynx normal Neck: normal visual inspection and trachea midline Respiratory: normal respiratory effort, lungs clear to auscultation Cardiovascular: Rate/Rhythm: regular rate and + irregularly irregular rhythm did not appreciate significant murmurs rubs or gallops, negative pedal edema with the exception of the infected foot, negative calf tenderness. Musculoskeletal: Head/Neck/Chest: normocephalic and head atraumatic Skin: left distal foot from midfoot to left great toe with swelling, erythema, and no longer warm to touch; left great toe with distal chronic appearing ulcera tive wound without oozing improving currently bandaged Neurologic: moves all extremities and awake Psychiatric: A+Ox3, euthymic affect Discharge Data Allergies Allergy/AdvReac Type Severity Reaction Status Date / Time Penicillins Allergy Unknown RASH Verified 06/25/19 20:27 Sulfa (Sulfonamide Allergy Unknown RASH Verified 06/25/19 20:27 Antibiotics) oxycodone AdvReac Unknown "A BAD Verified 06/25/19 20:27 TRIP" Urea Allergy Unknown RASH Uncoded 06/25/19 20:27 Consultations 06/25/19 21:02 ED Decision to Admit Stat 06/25/19 22:45 Consult Case Management - Discharge Planning Routine 06/28/19 10:18 Consult Wound Care Provider Routine Ordered Studies 06/25/19 19:56 US venous doppler LE LT Stat 06/26/19 22:45 US arterial duplex LE LT Routine Hospital Course (1) Cellulitis of left le-year-old female with history of hypertension, atrial fibrillation, CVA/TIA, osteoarthritis, lumbar disc degeneration, idiopathic bilateral neuropathy presenting with 1 week of swelling redness of her left lower extremity. She has had a nonhealing ulcer on her left first toe for approxi mately 1 month. Cellulitis left lower extremity Patient was initially tachycardic with a lactate of 2.1, white count of 13.6. Patient was afebrile, nontoxic. Received fluids in the ED. WBC improved this AM to WNL. Patient does not appear septic or bacteremic, blood cultures have demonstrated no growth to date, her white count improved while she was admitted and her lactate resolved. At discharge there was a discussion of what antibiotic to transition her to, there is no need for pseudomonal coverage. Ideally Augmentin would be an excellent candidate however this patient has allergy to penicillin therefore third-generation cephalosporin Ceftin ear was selected. Patient is to complete an additional 11 days of Ceftin ear as an outpatient, for total of 14 days of antibiotic coverage. Additionally will be having case management arrange for the patient to follow-up with the wound care clinic as an outpatient. Chronic nonhealing ulcer, eschar left first toe Patient has a history of atrial fibrillation, recently stopped Eliquis secondary to chronic epistaxis. Duplex Doppler scans lower extremity were ordered to rule out arterial stenosis, venous Dopplers were obtained to rule out DVT. Both of which were negative. A foot x-ray was not concerning for osteomyelitis. Wound care was consulted and did not feel that urgent debridement was necessary. We recommend the patient follow-up with wound care as an outpatient and will have case management arrange for this. History of atrial fibrillation Continued aspirin, diltiazem, metoprolol GERD Continued omeprazole Restless leg/neuropathy bilateral lower extremity Continued Requip, Ultram Asthma Continued albuterol as needed DVT prophylaxis Deferring chemical prophylaxis considering history of chronic epistaxis Patient was provided SCDs while hospitalized. FENa: Heart healthy Code Status: Full code DVT PPX: Chemical contraindicated secondary to history of chronic epistaxis mechanical SCDs in place PT/OT: Contraindicated at present, Dispo: Home Misha Patel MD PGY 2, FCM This chart was completed utilizing [employer] voice recognition software. Grammatical errors, random word insertions, pronoun errors, and in complete sentences are an occasional consequence of the system. Any questions or concerns about the content, text, or information contained within the body of this dictation should be addressed directly to the physician for clarification. (2) Hypertension: (3) Heath syndrome: (4) Osteoarthritis: (5) Peripheral neuropathy: Total Time Total Time Spent Total Time Spent (In Minutes): <30 Discharge Plan Discharge Items Patient Disposition: Home - Self-Care Reason For Visit: CELLULITIS Discharge Diagnosis: Left lower extremity cellulitis in the setting of chronic nonhealing ulcer with eschar on the left first toe Activity: Resume your previous activity Non-emergency contact: Primary Care Provider Call non-emergency contact if: you have any medication questions, your pain is worsening and you have a fever Follow-up/Referrals: Haresh Mirza MD [Primary Care Provider] - Rosalino Prince DO [Physician] - 07/04/19 10:00 am (A follow up appt. has been scheduled for you with Dr. Prince on Jul 04 at 10:00an) Diet: Heart Healthy Addtl Attending Provider Instructions: Care instructions: You were admitted to [facility] for treatment of Left lower extremity cellulitis in the setting of chronic nonhealing ulcer with eschar on the left first toe. While hospitalized he received 3 doses of ceftriaxone and intravenous antibiotic. Upon discharge you are to begin taking a medicine called cefdinir. You are to complete a 11-day course of this medication for a total of 14 days of antibiotic therapy. While hospitalized your foot was also evaluated by the wound care clinic who felt there is no need for urgent debridement. We recommend that you follow-up with them as an outpatient for further management of your wound. No significant changes were made to your medication while you are hospitalized. Should your symptoms worsen, fail to improve, or you experience other concerning signs or symptoms to return for reevaluation. Your medication is been sent to the [facility] on [facility]. A discharge summary will be sent to your primary care physician to ensure continuity of care. Please bring this discharge summary with you to your next office appointment so that your provider can review it at that time. Follow-up appointments: - Keep all your follow-up appointments as already scheduled. If you cannot make an appointment, notify your provider. - Please call to request a follow-up appointment with your primary care physician within one week of discharge. Please let us know if you are unable to obtain an appointment Medications: - Your medication list has been reviewed and reconciled upon discharge to ensure accuracy and continuity of care. - You are provided with a list of all your current medications at this time. Please review this list closely and make note of any changes. - Please take all of your medications exactly as prescribed. - Tell your primary care provider if you cannot afford your medications. - Call your primary care provider if you are having any side effects or any other problems. - Call your primary care provider before taking any over the counter medications or supplements, including herbals and vitamins, because some of these may interact with your current medications and/or make your symptoms worse. Symptoms: Please call your primary care provider for symptoms including, but not limited to: fevers (temperatures greater than 100.4), chills, intractable nausea or vomiting, diarrhea, rash, shortness of breath, bleeding, pain, or if you experience any worsening of the symptoms that brought you to the hospital. For EMERGENCY and VERY SERIOUS health-related issues, such as chest pain, shortness of breath, or sudden onset of the symptoms that brought you to the hospital, you may need to call 911 or go directly to the Emergency Room It has been our privilege to take care of you during your hospital stay. And Above All Else Feel Better! Best Wishes, Misha Patel MD PGY2 Resident, Family & Community Medicine [facility] FCM Residency at [facility] - [address], [address] : [address] [address] Pending Studies at Discharge: No Stand-Alone Forms: My [facility], Smoking Cessation Medications and DC Order Prescriptions: New cefdinir 300 mg capsule 300 mg PO BID 11 Days Qty: 22 RF: 0 Continued furosemide 40 mg tablet 20 mg PO BID RF: 0 polysaccharide iron complex [Ferrex 150] 150 mg iron capsule 150 mg PO DAILY RF: 0 aspirin [Aspir-Low] 81 mg Tablet,Delayed Release (Dr/Ec) 81 mg PO DAILY RF: 0 tramadol [Ultram] 50 mg tablet 50 mg PO Q6 RF: 0 magnesium oxide 400 mg (241.3 mg magnesium) tablet 400 mg PO BID RF: 0 ropinirole [Requip] 0.25 mg tablet 0.5 mg PO HS RF: 0 Premarin 0.625 mg tablet 0.625 mg PO DAILY RF: 0 omeprazole 20 mg capsule,delayed release(DR/EC) 20 mg PO DAILY RF: 0 diltiazem HCl [Cartia XT] 120 mg capsule,extended release 24hr 120 mg PO DAILY RF: 0 lisinopril [Zestril] 5 mg tablet 5 mg PO DAILY RF: 0 metoprolol succinate [Toprol XL] 25 mg tablet extended release 24 hr 25 mg PO DAILY RF: 0 albuterol sulfate 90 mcg/actuation HFA aerosol inhaler 2 puff INHALATION QID RF: 0 Discharge Orders: Discharge Order (Routine); Ordered 06/28/19 Ordered By: Misha Patel Admission Data Admit Date/Time: 06/27/19 14:41 Attending Provider: Vivek Sawant Admit Provider: Landon Almanzar Primary Care Provider: Haresh Mirza Other Providers: Nick Mcneil ; Sachin Swain Other Interventions: Discharge Summary Assessment (RN) Last Done: 06/28/19 13:34 Supervising Physician Co-Signing Physician Notes I personally examined the patient and verified all turner points of history and exam, discussed case, and agree with decision making with Dr Patel. Feeling better. Toe dressed and no need for immediate debridement. Vitals noted, in general she is awake and alert pleasant no distress. HEENT normocephalic atraumatic mucous membranes are moist. Breathing unlabored no accessory muscle use. Foot shows great toe with dense thick eschar but erythema has essentially resolved except for a little bit of what appears to be dull residual erythema on the dorsum of the foot that is more or less patchy, not warm and not tender. No other tracking erythema, no rashes no pallor or icterus. Cellulitis of L foot with eschar - improving -local wound care, close outpatient wound follow-up. Home on oral third-generation cephalosporin. Safe/stable for home Atrial fibrillation - continue ASA, diltiazem, metoprololrate control is been reasonable otherwise as above, stable for home, close follow-up with PCP and wound clinic. Resident Activity Tracking Resident Involvement: Resident Care Provided Care Provided: Adult Hospital Medicine
[2019-06-28] MEDS: ACETAMINOPHEN 325 MG TAB PO PRN (12:11)
--- NOTE | 2019-06-28 18:25 | Billing Data ---
Date of Service June 28, 2019 Coding Level of Care Code D/C Day Management <30 mins
== END 2019-06-28 18:42 | disposition home or self-care (01) ==
LOC: ED 19:33 → 3N 19:33 → SUATTDRO 21:53 → 3N 22:27

== ENCOUNTER 2019-07-12 12:59 | Inpatient (IN) ==
[2019-07-12] MEDS ORDERED: ACETAMINOPHEN 1,000 MG/100 ML VIAL IV STA (13:21)
[2019-07-12] MEDS ORDERED: KETOROLAC TROMETHAMINE 15 MG/ML VIAL IV STA (13:26)
[2019-07-12] MEDS ORDERED: SODIUM CHLORIDE 0.9% 500 ML IV ONE (13:26)
--- NOTE | 2019-07-12 14:01 | XRay Report ---
XR chest 1V portable CLINICAL HISTORY: 79 years-old Female presenting with Chest Pain. TECHNIQUE: Portable upright AP view of the chest was obtained. COMPARISON: 07/30/2014. FINDINGS: Atherosclerosis of the aortic arch. Tortuosity of the descending thoracic aorta. Cardiac silhouette n ormal in size. Diffusely coarsened lung markings, unchanged. No focal opacity. No large effusion or p neumothorax. Degenerative changes of the thoracic spine. Upper abdomen normal. IMPRESSION: 1. Tortuous thoracic aorta unchanged from prior. 2. No convincing evidence of acute cardiopulmonary disease. ACT 112: Negative or not required by law. Electronically signed by: Flaquito Servin M.D. 07/12/2019 2:00 PM
[2019-07-12 14:03] LABS: Basophils # (auto) 0.01 K/uL (0-0.2); Basophils % (auto) 0.1 %; Eosinophils # (auto) 0.02 K/uL (0-0.5); Eosinophils % (auto) 0.1 %; Hematocrit (blood only) 34.6 % (37-47); Hemoglobin 11.8 g/dL (12.0-16.0); Immature Granulocytes # (auto) 0.07 K/uL (0.00-0.02); Immature Granulocytes % (auto) 0.4 %; Lymphocytes # (auto) 0.76 K/uL (1.2-3.4); Lymphocytes % (auto) 4.5 %; Mean Corpuscular Hgb Conc 34.1 g/dL (32-36); Mean Corpuscular Volume 102.7 fL (80-100); Mean Platelet Volume 10.2 fL (7.4-10.4); Monocytes # (auto) 0.89 K/uL (0.11-0.59); Monocytes % (auto) 5.3 %; Neutrophils # (auto) 15.11 K/uL (1.4-6.5); Neutrophils % (auto) 89.6 %; Platelet Count 212 K/uL (130-400); RDW Coefficient of Variation 13.6 % (11.5-14.5); Red Blood Count 3.37 M/uL (4.2-5.4); White Blood Count 16.86 K/uL (4.8-10.8)
--- NOTE | 2019-07-12 14:07 | XRay Report ---
LEFT FOOT 3 VIEWS HISTORY: great toe cellulitis eval for osseous involvement. COMPARISON: Left foot 06/25/2019. FINDINGS: There is no fracture or dislocation. Vascular calcifications are noted. Soft tissue swellin g within the left first toe No radiopaque foreign bodies. Plantar heel spur. Skin ulceration within t he distal first toe. Overlying bandage obscures fine bony detail. No definite bony destruction identi fied. IMPRESSION: Skin ulceration within the distal first toe. Overlying bandage obscures fine bony detail. No definite areas of bony destruction identified to suggest osteomyelitis at this time. ACT 112: Negative or not required by law. Electronically signed by: Luis A Mata M.D. 07/12/2019 2:05 PM
[2019-07-12 14:23] LABS: Alanine Aminotransferase 11 U/L (12-78); BUN Creatinine Ratio 16.9 (10-20); Blood Urea Nitrogen 19 mg/dl (7-18); Calcium 9.1 mg/dl (8.5-10.1); Carbon Dioxide 24 mmol/L (21-32); Chloride 100 mmol/L (98-107); Creatinine Clr Calc Pharmacy 35.1 ml/min; Est GFR (African American) 53.3; Glucose 102 mg/dl (70-99); Lipase 59 U/L (73-393); Sodium 133 mmol/L (136-145)
[2019-07-12 14:25] LABS: Albumin Globulin Ratio 0.7 (0.9-2); Alkaline Phosphatase 126 U/L (45-117); Globulin 4.4 gm/dl (2.5-4.0); Phosphorus 1.9 mg/dl (2.5-4.9); Total Protein 7.4 gm/dl (6.4-8.2); Troponin I < 0.015 ng/ml (0-0.045)
[2019-07-12] MEDS ORDERED: VANCOMYCIN CONSULT ACTIVE PRN (14:41)
[2019-07-12] MEDS ORDERED: VANCOMYCIN HCL 1,250 MG in SODIUM CHLORIDE 0.9% 500 ML IV ONE (14:41)
[2019-07-12] MEDS ORDERED: CEFEPIME 2,000 MG/20 ML VIAL IV STA (14:41)
[2019-07-12 15:04] LABS: Potassium 4.2 mmol/L (3.5-5.1)
[2019-07-12 15:10] LABS: Magnesium 1.8 mg/dl (1.8-2.4)
[2019-07-12 15:23] LABS: Appearance Urine Cloudy (Clear); Bacteria Urine Automated Negative (Negative); Bilirubin Urine Negative (Negative); Blood Urine Negative (Negative); Color Urine Yellow; Epithelial Cell Urine Auto >30 /lpf (0-5); Glucose Urine UA Negative (Negative); Ketones Urine Negative (Negative); Leukocyte Esterase Urine Negative (Negative); Nitrite Urine Negative (Negative); Protein Urine Negative (Negative); RBC Urine Automated 0-4 /hpf (0-4); Specific Gravity Urine 1.014 (1.000-1.030); Urobilinogen Urine Negative (Negative); pH Urine >= 9.0 (4.5-7.5)
--- NOTE | 2019-07-12 16:25 | History & Physical Report ---
Date of Service July 12, 2019 Assessment & Plan (1) Sepsis associated hypotension: Admit to [facility] with telemetry. Blood cultures pending Wound cultures pending Wound care Wound provider to see the patient Consider orthopedic if MRI of the left foot big toe positive for osteo- Monitor CBC, electrolytes and replenish electrolytes Started cefepime and vancomycin empirically. Follow-up with blood cultures and wound cultures , specify treatment as per the results. DVT prophylaxis Lovenox 40 mg subcu 2 daily Physical and Occupational Therapy for ambulatory dysfunction Patient is a full code Present on Admission?: Yes (2) Ulcer of great toe: As the above Present on Admission?: Yes (3) Cellulitis: As the above management Present on Admission?: Yes (4) Peripheral neuropathy: Continue tramadol 50 mg p.o. nightly as needed for pain. Present on Admission?: Yes (5) Hypertension: Hold antihypertensive medication at this time while patient is hypot ensive. When able restart furosemide 20 mg p.o. twice daily, lisinopril 5 mg p.o. every morning. Continue metoprolol succinate 25 mg p.o. nightly if patient heart rate is above 60. Continue diltiazem 120 mg p.o. nightly if patient heart rate is above 60 bpm. If not hold the medication and continue monitoring. Present on Admission?: Yes (6) Asthma: Continue continue home inhalers albuterol 2 puffs 4 times daily as needed. Present on Admission?: Yes History of Present Illness Chief Complaint: Left foot big toe ulcer Primary Care Provider: Haresh Mirza MD The patient is a 79 years old female with past medical history of carpal tunnel syndrome, atrial flutter A. fib's, osteoarthritis, lumbar disc degeneration, hy pertension, peripheral neuropathy, asthma, presents with cellulitis of the left foot big toe with deep ulcer. Patient states that it is improved in comparison to how it was before. She was discharged on June 28, 2019 and she states that the wound is still persistent and eschar big toe of the left foot is appeared to be deeper. Patient reports pain everywhere. She appears to be septic. Patient states that she lives by herself and she is from her but he comes every day and takes care of her. Patient upfront stated that she is not going to intermediate facility in case that she needs physical therapy. Patient denies fever, chest pain, shortness of breath, abdominal pain, frequency, urgency. Patient reports chills and feeling very weak. Patient states she does not exactly remember when her foot started to look like this and at this time smells foul. Labs are reviewed: Sodium 133, potassium 4.2, chloride 100, carbon dioxide 24, anion gap 8, BUN 19, creatinine 1.14, GFR 46, lactate 2.2, calcium 9.1, phosphorus 1.9, magnesium 1.8, total bilirubin 10, AST 10, ALT 11, alkaline phosphatase 126, troponin 0 0.015, protein 7.4, albumin 3, globulin 4.4, lipase 59. Urine appears to be cloudy, negative for leukocyte esterase and nitrates. Negative white blood cells. WBC 16.86, hemoglobin 11.8, hematocrit 34.6, platelets 212. There is a left shift of 15.11. Decision was made to admit patient to the [facility] floor left foot big toe ulcer/cellulitis/possible osteo-, hypomagnesemia, hypophosphatemia ambulatory dysfunction. Allergies Allergy/AdvReac Type Severity Reaction Status Date / Time Penicillins Allergy Unknown RASH Verified 07/12/19 15:07 Sulfa (Sulfonamide Allergy Unknown RASH Verified 07/12/19 15:07 Antibiotics) oxycodone AdvReac Unknown "A BAD Verified 07/12/19 15:07 TRIP" Urea Allergy Unknown RASH Uncoded 07/12/19 15:07 Home Medications Home Medications Medication Instructions Recorded Confirmed Type Premarin 0.625 mg PO HS 06/25/19 07/12/19 History albuterol sulfate 2 puff INHALATION QID PRN 06/25/19 07/12/19 History aspirin [Aspir-Low] 81 mg PO HS 06/25/19 07/12/19 History diltiazem HCl [Cartia XT] 120 mg PO HS 06/25/19 07/12/19 History furosemide 20 mg PO BID 06/25/19 07/12/19 History lisinopril [Zestril] 5 mg PO QAM 06/25/19 07/12/19 History magnesium oxide 400 mg PO BID 06/25/19 07/12/19 History metoprolol succinate [Toprol XL] 25 mg PO HS 06/25/19 07/12/19 History omeprazole 20 mg PO HS 06/25/19 07/12/19 History polysaccharide iron complex 150 mg PO HS 06/25/19 07/12/19 History [Ferrex 150] ropinirole [Requip] 0.5 mg PO HS 06/25/19 07/12/19 History tramadol [Ultram] 50 mg PO Q6 PRN 06/25/19 07/12/19 History Past Med/Surg History Medical History Asthma (Chronic) Hypertension (Chronic) Osteoarthritis (Chronic) Peripheral neuropathy Surgical History History of hysterectomy (Chronic) History of laparotomy (Chronic) "for ruptured ovarian cyst" History of tubal ligation (Chronic) Family History Other Family history non-contributory Social History Preferred Language: Belarusian Communication Ability: Effective Lapel Padder Blindstitch Required: No Beliefs That Will Affect Care: None marital status: Current Living Situation: Alone Feels Safe at Home: Yes Smoking Status: Never smoker Hx Alcohol Use: Yes Alcohol type: wine, hard liquor and other Hx Substance Use: No Review of Systems Review of Systems: All systems reviewed & are unremarkable except as noted in HPI & below Physical Exam Constitutional: WD/WN, vitals as above well developed and + ill appearing Eyes: PERRL, conjunctivae normal, anicteric sclerae ENMT: external ear and nose normal, oropharynx normal Neck: trachea midline, no thyromegaly Respiratory: normal respiratory effort, lungs clear to auscultation Cardiovascular: Rate/Rhythm: regular rate and regular rhythm Heart Sounds: normal S1 and normal S2 Vessels: dorsalis pedis pulses present Gastrointestinal (Abdomen): normal bowel sounds, soft, nontender, no hepatosplenomegaly Musculoskeletal: no cyanosis or clubbing, extremities motor strength 5/5 Left foot big toe with eschar, deep ulcer on the top of the toe foul-smelling. The eschar is covering the entire top of big toe. Skin: no rashes, warm and dry Neurologic: patellar DTR's 2+ bilat, sensation intact Psychiatric: A+Ox3, euthymic affect Lymphatic: no cervical or axillary lymphadenopathy Results & Data Vital Signs (Past 12 Hours) Vital Signs Temp Pulse Resp BP Pulse Ox 07/12/19 15:04 16 102/56 L 97 07/12/19 14:30 91 H 15 07/12/19 14:02 88 21 96 07/12/19 14:01 86 15 102/56 L 97 07/12/19 13:59 88 23 111/62 97 07/12/19 13:56 98 07/12/19 13:01 37 C 104 H 22 124/68 97 Code Status & VTE Plan Code Status Full code VTE Prophylaxis Plan VTE Prophylaxis will be ordered: Yes PG Care Time/CCT Total # of Minutes Spent Total Time Spent with Patient: Total time spent is greater than 50% in coordination of care (as documented) at patient's floor/unit and/or counseling patient: (1) Ulcer of great toe Laterality: left Non-pressure ulcer stage: unspecified non-pressure ulcer stage Qualified Code(s): L97.529 - Non-pressure chronic ulcer of other part of left foot with unspecified severity (2) Cellulitis Laterality: left Site of cellulitis: extremity Site of cellulitis of extremity: toe Qualified Code(s): L03.032 - Cellulitis of left toe
[2019-07-12] MEDS ORDERED: FUROSEMIDE 20 MG TAB PO SCH (17:00)
[2019-07-12] MEDS ORDERED: MoRPHine SULFATE 2 MG/ML CARP IV STA (17:27)
[2019-07-12] MEDS ORDERED: ONDANSETRON INJ 2 MG/ML 2 ML VIAL IV PRN (18:37)
[2019-07-12] MEDS ORDERED: POLYETHYLENE (MIRALAX) 17 GM PACK PO PRN (18:37)
[2019-07-12] MEDS ORDERED: ENOXAPARIN INJ 40 MG/0.4 ML SYR SQ SCH (18:37)
[2019-07-12] MEDS ORDERED: ALUMINUM/MAGNESIUM SUSP 30 ML UDC PO PRN (18:37)
[2019-07-12] MEDS ORDERED: ACETAMINOPHEN 325 MG TAB PO PRN (18:37)
[2019-07-12] MEDS ORDERED: ALBUTEROL HFA 8 GM INHALER INH PRN (18:37)
[2019-07-12] MEDS ORDERED: KETOROLAC TROMETHAMINE 15 MG/ML VIAL IV PRN (18:37)
[2019-07-12] MEDS ORDERED: MAGNESIUM HYDROXIDE SUSP 30 ML UDC PO PRN (18:37)
[2019-07-12] MEDS ORDERED: SODIUM CHLORIDE 0.9% 1000ML 1,000 ML IV SCH (19:00)
[2019-07-12 19:14] LABS: C Reactive Protein 4.61 mg/dl (0-0.29); Thyroid Stimulating Hormone 0.886 uIu/ml (0.300-4.500)
--- NOTE | 2019-07-12 19:24 | Pharmacy Report ---
Pharmacy Abx Dose Short Note - Date of Service July 12, 2019 - Assessment & Plan Assessment 79 year old F receiving IV Vancomycin and Cefepime (not a consult) for treatment of L big toe ulcer Day # 1 of antimicrobial therapy. * Patient was recently admitted 06/25-06/28/19 for cellulitis and treated with ceftriaxone * Renal function appears at baseline. Most recent sCr = 1.14 mg/dL with estimated CrCl ~35 mL/min. Estimated pharmacokinetic parameters: * Ke ~0.033/hr, T1/2 ~21 hrs * Patient received Vancomycin 1250mg (~21mg/kg) IV x 1 as a loading dose in the ED Plan Vancomycin * Initiate Vancomycin 1000mg (~17mg/kg) IV q24 as maintenance regimen * Goal trough level for cellulitis : ~15 mcg/mL * Trough level ordered for: 07/14/19 @ 1330 (prior to 2nd dose and therefore not reflective of steady state, but want to assess dosing regimen early due to q24 dosing and unpredictable pharmacokinetics in elderly female) Pharmacy will continue to follow and will adjust dose/frequency as necessary. Thank you.
[2019-07-12] MEDS: ASPIRIN 81 MG ECTAB PO SCH (20:08)
[2019-07-12] MEDS: ROPINIROLE HCL 0.25 MG TABLET PO SCH (20:10)
[2019-07-12] MEDS: IRON POLYSACCHARIDE COMPLEX 150 MG CAPSULE PO SCH (20:10)
[2019-07-12] MEDS: PANTOprazole 40 MG TAB PO SCH (20:11)
[2019-07-12] MEDS: METOPROLOL SUCC 25MG EXT REL TAB PO SCH (20:14)
[2019-07-12] MEDS ORDERED: dilTIAZem HCL 120 MG CAPCR PO SCH (21:00)
[2019-07-12] MEDS ORDERED: ESTROGENS, CONJUGATED 0.625 MG TAB PO SCH (21:00)
--- NOTE | 2019-07-12 21:37 | Emergency Department Note ---
Entered by Carina Darby acting as a scribe for Romulo Clay MD History of Present Illness General Chief complaint: Leg Weakness, Bilateral Stated complaint: BILAT LEG WEAKNESS Time Seen by Provider: 07/12/19 13:08 Source: patient History of Present Illness Provider complaint: Bilateral Leg Weakness Onset (ago): day(s) 1 Location: lower extremity Maximum Pain Intensity: 10 Relieved By: + none Exacerbated By: + none Associated symptoms: + other (Shaking and cold); no cough and no fever/chills The patient is a 79 year old female who presents to the Emergency Room with complaints of bilateral leg weakness that began yesterday. The patient states that she believes she is having a flare up of her neuropathy. The patient states that her symptoms are not exacerbated nor relieved by anything specific. The patient reports experiencing uncontrollable shaking and has been very cold. The patient denies experiencing any cough or fever/chills. The patient notes that she did not take her Lasix this morning because she was supposed to go to the wound center but is in too much pain to go. Home Medications Home Medications Medication Instructions Recorded Confirmed Type Premarin 0.625 mg PO HS 06/25/19 07/12/19 History albuterol sulfate 2 puff INHALATION QID PRN 06/25/19 07/12/19 History aspirin [Aspir-Low] 81 mg PO HS 06/25/19 07/12/19 History diltiazem HCl [Cartia XT] 120 mg PO HS 06/25/19 07/12/19 History furosemide 20 mg PO BID 06/25/19 07/12/19 History lisinopril [Zestril] 5 mg PO QAM 06/25/19 07/12/19 History magnesium oxide 400 mg PO BID 06/25/19 07/12/19 History metoprolol succinate [Toprol XL] 25 mg PO HS 06/25/19 07/12/19 History omeprazole 20 mg PO HS 06/25/19 07/12/19 History polysaccharide iron complex 150 mg PO HS 06/25/19 07/12/19 History [Ferrex 150] ropinirole [Requip] 0.5 mg PO HS 06/25/19 07/12/19 History tramadol [Ultram] 50 mg PO Q6 PRN 06/25/19 07/12/19 History Allergies Allergy/AdvReac Type Severity Reaction Status Date / Time Penicillins Allergy Unknown RASH Verified 07/12/19 15:07 Sulfa (Sulfonamide Allergy Unknown RASH Verified 07/12/19 15:07 Antibiotics) oxycodone AdvReac Unknown "A BAD Verified 07/12/19 15:07 TRIP" Urea Allergy Unknown RASH Uncoded 07/12/19 15:07 Past Med/Surg History Medical History Asthma (Chronic) Hypertension (Chronic) Osteoarthritis (Chronic) Peripheral neuropathy Surgical History History of hysterectomy (Chronic) History of laparotomy (Chronic) "for ruptured ovarian cyst" History of tubal ligation (Chronic) Family History Other Family history non-contributory Social History Preferred Language: Argentine Communication Ability: Effective [employer] Rep Required: No Beliefs That Will Affect Care: None marital status: Current Living Situation: Spouse Feels Safe at Home: Yes Smoking Status: Former smoker Second Hand Exposure: No ; Hx Alcohol Use: Yes Alcohol type: hard liquor Hx Substance Use: No Review of Systems See HPI for pertinent positives & negatives. and A total of 10 systems reviewed and were otherwise negative Physical Exam Vital Signs Vital Signs - 24 hr 07/12/19 13:01 07/12/19 13:56 07/12/19 13:59 Temperature 37 C Temperature Source Oral Pulse Rate 104 H 88 Pulse Rate from SpO2 Sensor 87 Pulse Rhythm Regular Pulse Strength Normal Respiratory Rate 22 23 Respiratory Effort / Characteristics Non-Labored Spontaneous Respiratory Depth Normal Respiratory Pattern Regular Blood Pressure 124/68 111/62 Blood Pressure Mean 86 84 Blood Pressure Position Sitting Pulse Oximetry 97 98 97 Oxygen Delivery Method Room Air Room Air Room Air Sepsis Recent Fever Within 48 Hours No Sepsis New/Unexplained Change in Mental Status No Sepsis Action Taken by Nursing No Action Required 07/12/19 14:01 07/12/19 14:02 07/12/19 14:30 Temperature Temperature Source Pulse Rate 86 88 91 H Pulse Rate from SpO2 Sensor 86 87 Pulse Rhythm Pulse Strength Respiratory Rate 15 21 15 Respiratory Effort / Characteristics Respiratory Depth Respiratory Pattern Blood Pressure 102/56 L Blood Pressure Mean 75 Blood Pressure Position Pulse Oximetry 97 96 Oxygen Delivery Method Room Air Room Air Sepsis Recent Fever Within 48 Hours Sepsis New/Unexplained Change in Mental Status Sepsis Action Taken by Nursing 07/12/19 15:04 07/12/19 15:30 07/12/19 16:00 Temperature Temperature Source Pulse Rate 84 89 Pulse Rate from SpO2 Sensor 92 H 86 87 Pulse Rhythm Pulse Strength Respiratory Rate 16 14 23 Respiratory Effort / Characteristics Respiratory Depth Respiratory Pattern Blood Pressure 102/56 L 103/64 Blood Pressure Mean 71 77 Blood Pressure Position Pulse Oximetry 97 96 94 Oxygen Delivery Method Room Air Room Air Room Air Sepsis Recent Fever Within 48 Hours Sepsis New/Unexplained Change in Mental Status Sepsis Action Taken by Nursing GENERAL: Awake, alert, uncomfortable-appearing, in no distress HENT: Normocephalic, atraumatic. Oropharynx with dry mucous membranes and otherwise unremarkable. EYES: Normal conjunctiva. Sclera non-icteric. NECK: Supple. No nuchal rigidity. FROM. No JVD. RESPIRATORY: CTAB. CARDIAC: Tachycardic rate, normal rhythm. Extremities warm and well perfused. Pulses equal. ABDOMEN: Soft, non-distended. No tenderness to palpation. No rebound or guarding. No masses. RECTAL: Deferred. MUSCULOSKELETAL: Chest examination reveals no tenderness. The back is symmetrical on inspection without obvious abnormality. There is no CVA tenderness to palpation. No joint edema. LOWER EXTREMITIES: Calves are equal size bilaterally and non-tender. Mild swelling of left lower extremity with erythema of the left great toe. Foul odor of a necrotic appearing distal toe ulcer. Pedal pulses intact. No discoloration. NEURO: Normal sensorium. No sensory or motor deficits noted. SKIN: No rash or jaundice noted. Course Course 1315: Past medical records reviewed. The patient was evaluated in room C01B. A complete history and physical exam was performed. 1500: I spoke with Dr. Cardenas- Hospitalist about the patient's case and she will accept the patient for further evaluation. Administered Medications Aspirin (Ecotrin Ectab) 81 mg PO HS [facility] Stop: 08/11/19 20:59 Last Admin: 07/12/19 20:08 Dose: 81 mg Documented by: [id number] Diltiazem HCl (Cardizem Cd) 120 mg PO HS [facility] Stop: 08/11/19 20:59 Last Admin: 07/12/19 20:12 Dose: 120 mg Documented by: [id number] Estrogens Conjugated (Premarin) 0.625 mg PO [facility] Stop: 08/11/19 20:59 Last Admin: 07/12/19 20:09 Dose: 0.625 mg Documented by: [id number] Furosemide (Lasix) 20 mg PO [id number] [facility] Stop: 08/11/19 16:59 Last Admin: 07/12/19 19:13 Dose: 20 mg Documented by: [id number] Metoprolol Succinate (Toprol Xl) 25 mg PO [facility] Stop: 08/11/19 20:59 Last Admin: 07/12/19 20:14 Dose: 25 mg Documented by: [id number] Pantoprazole Sodium (Protonix) 40 mg PO [facility] Stop: 08/11/19 20:59 Last Admin: 07/12/19 20:11 Dose: 40 mg Documented by: [id number] Polysaccharide Iron Complex (Niferex-150 W/Vit C Cap) 150 mg PO [facility] Stop: 08/11/19 20:59 Last Admin: 07/12/19 20:10 Dose: 150 mg Documented by: [id number] Ropinirole HCl (Requip) 0.5 mg PO [facility] Stop: 08/11/19 20:59 Last Admin: 07/12/19 20:10 Dose: 0.5 mg Documented by: [id number] Discontinued Medications Acetaminophen (Ofirmev) 1,000 mg in 100 mls @ 400 mls/hr IV NOW STA Stop: 07/12/19 13:35 Last Infusion: 07/12/19 14:07 Dose: 0 mls/hr Documented by: [id number] Admin: 07/12/19 13:52 Dose: 400 mls/hr Documented by: [id number] Sodium Chloride (Nss) 500 mls @ 999 mls/hr IV .Q31M ONE Stop: 07/12/19 13:56 Last Infusion: 07/12/19 14:23 Dose: 0 mls/hr Documented by: [id number] Admin: 07/12/19 13:52 Dose: 999 mls/hr Documented by: [id number] Cefepime HCl (Maxipime) 2,000 mg in 20 mls @ 5 mls/min IV NOW STA; Protocol Stop: 07/12/19 14:44 Last Admin: 07/12/19 14:59 Dose: 5 mls/min Documented by: [id number] Vancomycin HCl 1,250 mg/ (Sodium Chloride) 525 mls @ 200 mls/hr IV NOW ONE Stop: 07/12/19 17:18 Last Infusion: 07/12/19 17:45 Dose: 0 mls/hr Documented by: [id number] Admin: 07/12/19 15:07 Dose: 200 mls/hr Documented by: [id number] Sodium Chloride (Nss 1000ml) 1,000 mls @ 80 mls/hr IV .[id number] [facility] Stop: 08/11/19 18:59 Last Admin: 07/12/19 19:06 Dose: Not Given Documented by: [id number] Ketorolac Tromethamine (Toradol) 15 mg IV NOW STA Stop: 07/12/19 13:27 Last Admin: 07/12/19 13:52 Dose: 15 mg Documented by: [id number] Morphine Sulfate (Morphine Sulfate) 1 mg IV NOW STA Stop: 07/12/19 17:28 Last Admin: 07/12/19 17:34 Dose: 1 mg Documented by: [id number] Medical Decision Making Differential Diagnosis Differential diagnosis: Etiologies such as cellulitis, abscess, osteomyelitis, MRSA infection, DVT, necrotizing fasciitis, dermatitis, drug eruption, as well as others were entertained. Medical Records Attestation: I reviewed the patient's medical records. Home Medications Current Medication List: was personally reviewed by me Laboratory Data Attestation: I reviewed the patient's lab results. Result diagrams: 07/12/19 13:54 07/12/19 14:38 Lab Results 07/12/19 07/12/19 07/12/19 Range/Units 13:54 13:54 13:54 WBC 16.86 H (4.8-10.8) K/uL RBC 3.37 L (4.2-5.4) M/uL Hgb 11.8 L (12.0-16.0) g/dL Hct 34.6 L (37-47) % MCV 102.7 H (80-100) fL MCH 35.0 H (25-34) pg MCHC 34.1 (32-36) g/dL RDW Std Deviation 51.0 H (36.4-46.3) fL RDW Coeff of Augie 13.6 (11.5-14.5) % Plt Count 212 (130-400) K/uL MPV 10.2 (7.4-10.4) fL Immature Gran % (Auto) 0.4 % Neut % (Auto) 89.6 % Lymph % (Auto) 4.5 % [place] % (Auto) 5.3 % Eos % (Auto) 0.1 % Baso % (Auto) 0.1 % Immature Gran # (Auto) 0.07 H (0.00-0.02) K/uL Neut # (Auto) 15.11 H (1.4-6.5) K/uL Lymph # (Auto) 0.76 L (1.2-3.4) K/uL [place] # (Auto) 0.89 H (0.11-0.59) K/uL Eos # (Auto) 0.02 (0-0.5) K/uL Baso # (Auto) 0.01 (0-0.2) K/uL Sodium 133 L (136-145) mmol/L Potassium (3.5-5.1) mmol/L Chloride 100 (98-107) mmol/L Carbon Dioxide 24 (21-32) mmol/L Anion Gap 8.0 (3-11) BUN 19 H (7-18) mg/dl Creatinine 1.14 (0.6-1.2) mg/dl Est Cr Clr Drug Dosing 35.1 ml/min Est GFR ( Amer) 53.3 Est GFR (Non-Af Amer) 46.0 BUN/Creatinine Ratio 16.9 (10-20) Glucose 102 H (70-99) mg/dl Lactate 2.2 H* (0.4-2.0) mmol/L Calcium 9.1 (8.5-10.1) mg/dl Phosphorus 1.9 L (2.5-4.9) mg/dl Magnesium (1.8-2.4) mg/dl Total Bilirubin 1.0 (0.2-1) mg/dl AST (15-37) U/L ALT 11 L (12-78) U/L Alkaline Phosphatase 126 H (45-117) U/L Total Creatine Kinase TNP Troponin I < 0.015 (0-0.045) ng/ml C-Reactive Protein (0-0.29) mg/dl NT-Pro-B Natriuret Pep (0-1800) pg/ml Total Protein 7.4 (6.4-8.2) gm/dl Albumin 3.0 L (3.4-5.0) gm/dl Globulin 4.4 H (2.5-4.0) gm/dl Albumin/Globulin Ratio 0.7 L (0.9-2) Lipase 59 L (73-393) U/L TSH (0.300-4.500) uIu/ml Urine Color Urine Appearance (Clear) Urine pH (4.5-7.5) Ur Specific Barnard (1.000-1.030) Urine Protein (Negative) Urine Glucose (UA) (Negative) Urine Ketones (Negative) Urine Blood (Negative) Urine Nitrite (Negative) Urine Bilirubin (Negative) Urine Urobilinogen (Negative) Ur Leukocyte Esterase (Negative) Urine WBC (Auto) (0-5) /hpf Urine RBC (Auto) (0-4) /hpf U Hyaline Cast (Auto) (0-5) /lpf U Epithel Cells (Auto) (0-5) /lpf Urine Bacteria (Auto) (Negative) 07/12/19 07/12/19 07/12/19 Range/Units 14:38 14:38 15:03 WBC (4.8-10.8) K/uL RBC (4.2-5.4) M/uL Hgb (12.0-16.0) g/dL Hct (37-47) % MCV (80-100) fL MCH (25-34) pg MCHC (32-36) g/dL RDW Std Deviation (36.4-46.3) fL RDW Coeff of Augie (11.5-14.5) % Plt Count (130-400) K/uL MPV (7.4-10.4) fL Immature Gran % (Auto) % Neut % (Auto) % Lymph % (Auto) % [place] % (Auto) % Eos % (Auto) % Baso % (Auto) % Immature Gran # (Auto) (0.00-0.02) K/uL Neut # (Auto) (1.4-6.5) K/uL Lymph # (Auto) (1.2-3.4) K/uL [place] # (Auto) (0.11-0.59) K/uL Eos # (Auto) (0-0.5) K/uL Baso # (Auto) (0-0.2) K/uL Sodium (136-145) mmol/L Potassium 4.2 (3.5-5.1) mmol/L Chloride (98-107) mmol/L Carbon Dioxide (21-32) mmol/L Anion Gap (3-11) BUN (7-18) mg/dl Creatinine (0.6-1.2) mg/dl Est Cr Clr Drug Dosing ml/min Est GFR ( Amer) Est GFR (Non-Af Amer) BUN/Creatinine Ratio (10-20) Glucose (70-99) mg/dl Lactate (0.4-2.0) mmol/L Calcium (8.5-10.1) mg/dl Phosphorus (2.5-4.9) mg/dl Magnesium 1.8 (1.8-2.4) mg/dl Total Bilirubin (0.2-1) mg/dl AST 10 L (15-37) U/L ALT (12-78) U/L Alkaline Phosphatase (45-117) U/L Total Creatine Kinase Troponin I (0-0.045) ng/ml C-Reactive Protein 4.61 H (0-0.29) mg/dl NT-Pro-B Natriuret Pep 1299 (0-1800) pg/ml Total Protein (6.4-8.2) gm/dl Albumin (3.4-5.0) gm/dl Globulin (2.5-4.0) gm/dl Albumin/Globulin Ratio (0.9-2) Lipase (73-393) U/L TSH 0.886 (0.300-4.500) uIu/ml Urine Color Yellow Urine Appearance Cloudy A (Clear) Urine pH >= 9.0 H (4.5-7.5) Ur Specific Barnard 1.014 (1.000-1.030) Urine Protein Negative (Negative) Urine Glucose (UA) Negative (Negative) Urine Ketones Negative (Negative) Urine Blood Negative (Negative) Urine Nitrite Negative (Negative) Urine Bilirubin Negative (Negative) Urine Urobilinogen Negative (Negative) Ur Leukocyte Esterase Negative (Negative) Urine WBC (Auto) 1-5 (0-5) /hpf Urine RBC (Auto) 0-4 (0-4) /hpf U Hyaline Cast (Auto) 1-5 (0-5) /lpf U Epithel Cells (Auto) >30 H (0-5) /lpf Urine Bacteria (Auto) Negative (Negative) 07/12/19 Range/Units 15:49 WBC (4.8-10.8) K/uL RBC (4.2-5.4) M/uL Hgb (12.0-16.0) g/dL Hct (37-47) % MCV (80-100) fL MCH (25-34) pg MCHC (32-36) g/dL RDW Std Deviation (36.4-46.3) fL RDW Coeff of Augie (11.5-14.5) % Plt Count (130-400) K/uL MPV (7.4-10.4) fL Immature Gran % (Auto) % Neut % (Auto) % Lymph % (Auto) % [place] % (Auto) % Eos % (Auto) % Baso % (Auto) % Immature Gran # (Auto) (0.00-0.02) K/uL Neut # (Auto) (1.4-6.5) K/uL Lymph # (Auto) (1.2-3.4) K/uL [place] # (Auto) (0.11-0.59) K/uL Eos # (Auto) (0-0.5) K/uL Baso # (Auto) (0-0.2) K/uL Sodium (136-145) mmol/L Potassium (3.5-5.1) mmol/L Chloride (98-107) mmol/L Carbon Dioxide (21-32) mmol/L Anion Gap (3-11) BUN (7-18) mg/dl Creatinine (0.6-1.2) mg/dl Est Cr Clr Drug Dosing ml/min Est GFR ( Amer) Est GFR (Non-Af Amer) BUN/Creatinine Ratio (10-20) Glucose (70-99) mg/dl Lactate 1.0 (0.4-2.0) mmol/L Calcium (8.5-10.1) mg/dl Phosphorus (2.5-4.9) mg/dl Magnesium (1.8-2.4) mg/dl Total Bilirubin (0.2-1) mg/dl AST (15-37) U/L ALT (12-78) U/L Alkaline Phosphatase (45-117) U/L Total Creatine Kinase Troponin I (0-0.045) ng/ml C-Reactive Protein (0-0.29) mg/dl NT-Pro-B Natriuret Pep (0-1800) pg/ml Total Protein (6.4-8.2) gm/dl Albumin (3.4-5.0) gm/dl Globulin (2.5-4.0) gm/dl Albumin/Globulin Ratio (0.9-2) Lipase (73-393) U/L TSH (0.300-4.500) uIu/ml Urine Color Urine Appearance (Clear) Urine pH (4.5-7.5) Ur Specific Barnard (1.000-1.030) Urine Protein (Negative) Urine Glucose (UA) (Negative) Urine Ketones (Negative) Urine Blood (Negative) Urine Nitrite (Negative) Urine Bilirubin (Negative) Urine Urobilinogen (Negative) Ur Leukocyte Esterase (Negative) Urine WBC (Auto) (0-5) /hpf Urine RBC (Auto) (0-4) /hpf U Hyaline Cast (Auto) (0-5) /lpf U Epithel Cells (Auto) (0-5) /lpf Urine Bacteria (Auto) (Negative) Imaging Data Radiologist's Impression: Radiology results as stated below per my review and the radiologist's interpretation: XR chest 1V portable CLINICAL HISTORY: 79 years-old Female presenting with Chest Pain. TECHNIQUE: Portable upright AP view of the chest was obtained. COMPARISON: 07/30/2014. FINDINGS: Atherosclerosis of the aortic arch. Tortuosity of the descending thoracic aorta. Cardiac silhouette normal in size. Diffusely coarsened lung markings, unchanged. No focal opacity. No large effusion or pneumothorax. Degenerative changes of the thoracic spine. Upper abdomen normal. IMPRESSION: 1. Tortuous thoracic aorta unchanged from prior. 2. No convincing evidence of acute cardiopulmonary disease. ACT 112: Negative or not required by law. Electronically signed by: Flaquito Servin M.D. 07/12/2019 2:00 PM LEFT FOOT 3 VIEWS HISTORY: great toe cellulitis eval for osseous involvement. COMPARISON: Left foot 06/25/2019. FINDINGS: There is no fracture or dislocation. Vascular calcifications are noted. Soft tissue swelling within the left first toe No radiopaque foreign bodies. Plantar heel spur. Skin ulceration within the distal first toe. Overlying bandage obscures fine bony detail. No definite bony destruction identified. IMPRESSION: Skin ulceration within the distal first toe. Overlying bandage obscures fine bony detail. No definite areas of bony destruction identified to suggest osteomyelitis at this time. ACT 112: Negative or not required by law. Electronically signed by: Luis A Mata M.D. 07/12/2019 2:05 PM ECG Data Indication: + weakness Rate (beats per minute): 90 Rhythm: + sinus rhythm ECG Intervals/blocks: + Normal QT-c (QTC 433) ECG ST segments: no ST depression and no ST elevation ECG Findings: + Other (PSVC, normal axis) Blood Pressure Blood Pressure Findings: Low blood pressure Blood Pressure Disposition: further management by hospitalist JAY Sloan The patient is a pleasant 79-year-old woman with a past medical history of neuropathy presents emergency department with worsening neuropathic pain in all her extremities in the setting of recent admission for cellulitis of her left great toe with associated ulceration per HPI. On arrival the patient is uncomfortable but no acute distress, afebrile stable vital signs. On exam patient has mild erythema and warmth to the to the left great toe with foul swelling necrotic ulcer of the plantar aspect of the great toe. EKG without overt acute ischemia. WBC 16.8 increased from patient's discharge. H/H 11.8/34.6 within prior range of values with a possible component of hemoconcentration. Platelets within normal limits. Chemistry without acidosis. Phosphorus 1.9. Electrolytes and LFTs otherwise unremarkable. Troponin negative/undetectable. UA without evidence of infection. Chest x-ray negative for acute process. Plain film of the left foot without any evidence of osseous involvement. Patient's presenting complaint was her diffuse and worsening neuropathic pain certainly it is concerning that the patient's great toe cellulitis and necrotic wound is not appear significantly improved from her admission photographs on 06/28. Therefore reasonable to admit the patient for further management of this. Given the foul-smelling odor of the wound in the setting of lack of improvement on third-generation cephalosporin alone will treat with cefepime and vancomycin for now. Patient has a history of a penicillin allergy. Patient is agreeable with admission. Case was discussed with Dr. Cardenas, [facility] hospitalist, who evaluate the patient for admission. Impression & Plan Cellulitis, Ulcer of great toe, Dehydration, Chronic neuropathic pain Discharge Plan Visit Data *Final* Discharge Date/Time: 07/12/19 18:03 Chief Complaint: Leg Weakness, Bilateral Stated Complaint: BILAT LEG WEAKNESS ED Provider: Romulo Clay Discharge Problem: Cellulitis, Ulcer of great toe, Dehydration, Chronic neuropathic pain Patient Disposition: Admitted As Inpatient Discharge Instructions Interventions: ED Discharge Assessment Last Done: 07/12/19 18:03 Discharge Problem: Cellulitis Qualifiers: Site of cellulitis: extremity Site of cellulitis of extremity: toe Laterality: left Qualified Code(s): L03.032 - Cellulitis of left toe Ulcer of great toe Qualifiers: Laterality: left Non-pressure ulcer stage: unspecified non-pressure ulcer stage Qualified Code(s): L97.529 - Non-pressure chronic ulcer of other part of left foot with unspecified severity The scribe's documentation has been prepared under my direction and personally reviewed by me in its entirety. I confirm that the note above accurately reflects all work, treatment, procedures, and medical decision making performed by me.
--- NOTE | 2019-07-12 23:09 | Electrocardiogram Report ---
Test Reason : Blood Pressure : / mmHG Vent. Rate : 090 BPM Atrial Rate : 090 BPM P-R Int : 170 ms QRS Dur : 082 ms QT Int : 354 ms P-R-T Axes : 072 024 032 degrees QTc Int : 433 ms Sinus rhythm with Premature supraventricular complexes Otherwise normal ECG When compared with ECG of 25-JUN-2019 20:01, No significant change was found Confirmed by Bryson Elias ([id number]) on 07/12/2019 11:09:32 PM Referred By: ED Confirmed By:Bryson Elias
[2019-07-13] MEDS: TRAMADOL HCL 50 MG TABLET PO PRN (00:38)
--- NOTE | 2019-07-13 07:15 | Magnetic Resonance Report ---
MR foot LT w/o con CLINICAL HISTORY: Left great toe ulcer. COMPARISON STUDY: Left foot radiographs June 22, 2019. TECHNIQUE: Utilizing 1.5 [employer] magnet and dedicated coil, multiplanar, multiecho imaging of the left forefoot was performed without intravenous contrast. FINDINGS: Note is made of a left first toe wound. There is edema of the left first toe suggestive of cellulitis. Soft tissue gas is noted adjacent to the distal tuft of the distal phalanx of the left fi rst toe. There is marked marrow edema with diminished T1 signal within the distal phalanx of the left first toe. Note is made of increased T2 signal and decreased T1 signal within the navicular bone. Th is is unlikely to reflect osteomyelitis. Tarsometatarsal joints are intact. Mild increased T2 signal of the flexor musculature is noted. There is mild dorsal subcutaneous edema. IMPRESSION: 1. Findings consistent with osteomyelitis of the distal phalanx of the left first toe. Overlying woun d with soft tissue gas and cellulitis. 2. Marrow signal abnormality within the navicular. Although nonspecific, this is unlikely to reflect osteomyelitis. This is likely traumatic or degenerative. Osteonecrosis could appear similar although is considered less likely. ACT 112: Negative or not required by law. Electronically signed by: Abiel Massey M.D. 07/13/2019 7:13 AM
[2019-07-13 08:02] LABS: Creatinine Clr Calc Pharmacy 39.6 ml/min; Est GFR (African American) 61.7; Est GFR (Non-African American) 53.3
[2019-07-13] MEDS: lisinopriL 5 MG TAB PO SCH (08:04)
[2019-07-13] MEDS ORDERED: METOPROLOL TARTRATE 1 MG/ML VIAL IV STA (12:13)
--- NOTE | 2019-07-13 13:22 | Orthopedic Consultation ---
Date of Consultation July 13, 2019 Assessment & Plan (1) Ulcer of great toe: She is a chronic wound that communicates to an area of suspected osteomyelitis on MRI. She came in with elevated white count is a prolonged management with this with parenteral antibiotics and oral antibiotics. For that reason, I think the best means forward to treat this adequately is to proceed with a irrigation debridement and likely amputation of the distal phalanx of the toe, with the possibility advancing onto the proximal phalanx, if needed. She may lose the toe nail. The goal is to have adequate soft tissue coverage for immediate healing. She will likely need continued antibiotics per the [facility] pitalist or infectious disease service. I discussed these findings and my recommendation for surgery with her in detail. The consent will be left great toe irrigation debridement and amputation. We discussed the risks of surgery include but not limited to infection, neurovascular injury, need for repeat or revision surgery, need for higher level amputation with subsequent date, delayed wound healing, blood clots and complications related to anesthesia. She asked appropriate questions, demonstrated good understanding and elected proceed. Her was agreeable by phone. 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 States she recently developed cellulitis, about one month ago, from an unknown cause in her left foot. She was admitted to [facility] for further care. She was given IV antibiotics and eventually sent home after the cellulitis seemed to have cleared up. However, she now has a necrotic left great toe infection with subsequent osteomyelitis, confirmed via blood cultures. She denies pain today. She is aware of amputation as a possible treatment option but would like for us to speak with her regarding amputation. Patient has associated numbness in her left foot with complete loss of sensation in her left great toe. Attending Physician: Dom Lopez MD Allergies Allergy/AdvReac Type Severity Reaction Status Date / Time Penicillins Allergy Unknown RASH Verified 07/12/19 15:07 Sulfa (Sulfonamide Allergy Unknown RASH Verified 07/12/19 15:07 Antibiotics) oxycodone AdvReac Unknown "A BAD Verified 07/12/19 15:07 TRIP" Urea Allergy Unknown RASH Uncoded 07/12/19 15:07 Home Medications Home Medications Medication Instructions Recorded Confirmed Type Premarin 0.625 mg PO HS 06/25/19 07/12/19 History albuterol sulfate 2 puff INHALATION QID PRN 06/25/19 07/12/19 History aspirin [Aspir-Low] 81 mg PO HS 06/25/19 07/12/19 History diltiazem HCl [Cartia XT] 120 mg PO HS 06/25/19 07/12/19 History furosemide 20 mg PO BID 06/25/19 07/12/19 History lisinopril [Zestril] 5 mg PO QAM 06/25/19 07/12/19 History magnesium oxide 400 mg PO BID 06/25/19 07/12/19 History metoprolol succinate [Toprol XL] 25 mg PO HS 06/25/19 07/12/19 History omeprazole 20 mg PO HS 06/25/19 07/12/19 History polysaccharide iron complex 150 mg PO HS 06/25/19 07/12/19 History [Ferrex 150] ropinirole [Requip] 0.5 mg PO HS 06/25/19 07/12/19 History tramadol [Ultram] 50 mg PO Q6 PRN 06/25/19 07/12/19 History Patient History Medical History Afib Asthma (Chronic) Hypertension (Chronic) Osteoarthritis (Chronic) Peripheral neuropathy Surgical History History of hysterectomy (Chronic) History of laparotomy (Chronic) "for ruptured ovarian cyst" History of tubal ligation (Chronic) Family History Other Family history non-contributory Social History Preferred Language: Tuvaluan Communication Ability: Effective 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: No Beliefs That Will Affect Care: None marital status: Current Living Situation: Spouse Feels Safe at Home: Yes Smoking Status: Former smoker Second Hand Exposure: No ; Hx Alcohol Use: Yes Alcohol type: hard liquor Hx Substance Use: No Review of Systems Constitutional: no fever, no chills and no problem reported Eyes: as per Subjective / HPI; no problem reported Ear, Nose, Mouth, Throat: as per Subjective / HPI; no problem reported Respiratory: as per Subjective / HPI; no problem reported Cardiovascular: no edema and no problem reported Gastrointestinal: no nausea, no vomiting and no problem reported Musculoskeletal: as per Subjective / HPI Integumentary: as per Subjective / HPI Neurologic: + memory loss; no tingling and no paresthesia Psychiatric: no problem reported Endocrine: as per Subjective / HPI Hematologic / Lymphatic: as per Subjective / HPI Allergy / Immunological: no problem reported Physical Exam Constitutional: WD/WN, vitals as above A+Ox3 Musculoskeletal: Patient's dressings were changed earlier today. I removed the dressings for exam. Dressings did have discharge. Patient has mildly reduced active ROM with flexion and extension of her left great toe but is able to perform this maneuvers. She has no sensation to her left great toe upon pa lpation. There is a clearly visible necrotic segments that has central ulceration with purulent material easily expressed from the central portion on the plantar aspect of the great toe. There is dry scaling skin appears necrotic around the great toe nailbed. There is surrounding erythema to the length of the great toe back onto the forefoot. Results & Data Vital Signs (Past 12 Hours) Vital Signs Temp Pulse Pulse Resp BP BP Pulse Ox 07/13/19 11:00 36.7 C 69 18 118/71 98 07/13/19 07:16 58 L 07/13/19 06:24 36.7 C 67 20 103/60 93 07/13/19 03:29 36.5 C 62 19 115/62 99 XR: No conclusive evidence of osteomyelitis, limited by toe deformity MRI: Evidence of osteomyelitis affecting the distal phalanx, communicating with the wound and soft tissue edema PG Care Time/CCT Total # of Minutes Spent Total Time Spent with Patient: Total time spent is greater than 50% in coordination of care (as documented) at patient's floor/unit and/or counseling patient: Coding Level of Care Code 36988 Initial Inpt Care Lvl 3 Diagnoses Ulcer of great toe L97.529 Laterality: left Non-pressure ulcer stage: unspecified non-pressure ulcer stage Cellulitis of left leg L03.116 (1) Ulcer of great toe Laterality: left Non-pressure ulcer stage: unspecified non-pressure ulcer stage Qualified Code(s): L97.529 - Non-pressure chronic ulcer of other part of left foot with unspecified severity
[2019-07-13] MEDS: CEFEPIME 2,000 MG in SYRINGE 7.5 ML IV SCH (13:42)
[2019-07-13] MEDS: LACTATED RINGER'S 1,000 ML IV SCH (13:43)
[2019-07-13] MEDS ORDERED: ENOXAPARIN INJ 40 MG/0.4 ML SYR SQ SCH (14:00)
[2019-07-13] MEDS ORDERED: VANCOMYCIN HCL 1,000 MG in SODIUM CHLORIDE 0.9% 250 ML IV SCH (14:00)
--- NOTE | 2019-07-13 14:07 | Anesthesiology Consultation ---
Date of Service July 13, 2019 Assessment & Plan (1) Encounter for pre-operative examination: Chart Review Chart Review: Acceptable Risk for Surgery and Patient NOT seen in Pre Admission Testing Consults Requested none History Surgery Operation Date: 07/13/19 17:35 Proposed Procedures p Left Great Toe Amputation with Incision and Drainage - Timo Hernandes Height/Weight Height: 5 ft 4 in Weight: 59.2 kg Allergies Allergy/AdvReac Type Severity Reaction Status Date / Time Penicillins Allergy Unknown RASH Verified 07/12/19 15:07 Sulfa (Sulfonamide Allergy Unknown RASH Verified 07/12/19 15:07 Antibiotics) oxycodone AdvReac Unknown "A BAD Verified 07/12/19 15:07 TRIP" Urea Allergy Unknown RASH Uncoded 07/12/19 15:07 Medications Home Medications Medication Instructions Recorded Confirmed Last Taken Premarin 0.625 mg PO HS 06/25/19 07/12/19 07/11/19 albuterol sulfate 2 puff INHALATION QID PRN 06/25/19 07/12/19 Unknown aspirin [Aspir-Low] 81 mg PO 06/25/19 07/12/19 07/11/19 diltiazem HCl [Cartia XT] 120 mg PO HS 06/25/19 07/12/19 07/11/19 furosemide 20 mg PO BID 06/25/19 07/12/19 07/11/19 08:00 lisinopril [Zestril] 5 mg PO QAM 06/25/19 07/12/19 07/12/19 magnesium oxide 400 mg PO BID 06/25/19 07/12/19 07/12/19 metoprolol succinate [Toprol XL] 25 mg PO 06/25/19 07/12/19 07/11/19 omeprazole 20 mg PO 06/25/19 07/12/19 07/11/19 polysaccharide iron complex 150 mg PO HS 06/25/19 07/12/19 07/11/19 [Ferrex 150] ropinirole [Requip] 0.5 mg PO HS 06/25/19 07/12/19 07/11/19 tramadol [Ultram] 50 mg PO Q6 PRN 06/25/19 07/12/19 Unknown Active Medications Generic Name Dose Route Start Last Admin Trade Name Freq PRN Reason Stop Dose Admin Acetaminophen 650 mg 07/12/19 18:37 07/13/19 07:39 Tylenol PO 08/11/19 18:36 650 mg Q4H PRN Administration Pain or Fever Aspirin 81 mg 07/12/19 21:00 07/12/19 20:08 Ecotrin Ectab PO 08/11/19 20:59 81 mg HS ZULEIKA Administration Diltiazem HCl 120 mg 07/12/19 21:00 07/12/19 20:12 Cardizem Cd PO 08/11/19 20:59 120 mg HS ZULEIKA Administration Estrogens Conjugated 0.625 mg 07/12/19 21:00 07/12/19 20:09 Premarin PO 08/11/19 20:59 0.625 mg HS ZULEIKA Administration Cefepime HCl 2,000 mg/ Syringe 20 mls @ 5.5 mls/min 07/13/19 14:00 07/13/19 13:42 IV 07/22/19 13:59 5.5 mls/min Q24H ZULEIKA Administration Protocol Vancomycin HCl 1,000 mg/ 270 mls @ 125 mls/hr 07/13/19 14:00 07/13/19 13:42 Sodium Chloride IV 07/22/19 13:59 125 mls/hr Q24H ZULEIKA Administration Lactated Ringer's 1,000 mls @ 100 mls/hr 07/13/19 13:30 07/13/19 13:43 Lr IV 08/12/19 13:29 100 mls/hr .Q10H ZULEKIA Administration Lisinopril 5 mg 07/13/19 09:00 07/13/19 08:04 Zestril PO 08/12/19 08:59 5 mg QAM ZULEIKA Administration Metoprolol Succinate 25 mg 07/12/19 21:00 07/12/19 20:14 Toprol Xl PO 08/11/19 20:59 25 mg HS ZULEIKA Administration Pantoprazole Sodium 40 mg 07/12/19 21:00 07/12/19 20:11 Protonix PO 08/11/19 20:59 40 mg HS ZULEIKA Administration Polysaccharide Iron Complex 150 mg 07/12/19 21:00 07/12/19 20:10 Niferex-150 W/Vit C Cap PO 08/11/19 20:59 150 mg HS ZULEIKA Administration Ropinirole HCl 0.5 mg 07/12/19 21:00 07/12/19 20:10 Requip PO 08/11/19 20:59 0.5 mg HS ZULEIKA Administration Tramadol HCl 50 mg 07/12/19 18:37 07/13/19 00:38 Ultram PO 08/11/19 18:36 50 mg Q6 PRN Administration Pain Past Medical History Medical History (Updated 07/13/19 @ 14:05 by Shy Trent MD) Afib Asthma (Chronic) Hypertension (Chronic) Osteoarthritis (Chronic) Peripheral neuropathy Past Family History Family History Other Family history non-contributory Past Surgical History Surgical History History of hysterectomy (Chronic) History of laparotomy (Chronic) "for ruptured ovarian cyst" History of tubal ligation (Chronic) Social History Smoking Status: Former smoker Do You Dip or Chew Tobacco: No Hx Alcohol Use: Yes Alcohol type: hard liquor alcohol intake frequency: 0-2 drinks per day Hx Substance Use: No Physical Exam Vital Signs Last Vital Signs Temp 36.7 C 07/13/19 11:00 Pulse 69 07/13/19 11:00 Resp 18 07/13/19 11:00 BP 118/71 07/13/19 11:00 Pulse Ox 98 07/13/19 11:00 Testing Laboratory Results 07/12/19 13:54 07/13/19 07:08 Urine Color Yellow 07/12/19 15:03 Urine Appearance Cloudy (Clear) A 07/12/19 15:03 Urine pH >= 9.0 (4.5-7.5) H 07/12/19 15:03 Ur Specific Bliss 1.014 (1.000-1.030) 07/12/19 15:03 Urine Protein Negative (Negative) 07/12/19 15:03 Urine Glucose (UA) Negative (Negative) 07/12/19 15:03 Urine Ketones Negative (Negative) 07/12/19 15:03 Urine Nitrite Negative (Negative) 07/12/19 15:03 Ur Leukocyte Esterase Negative (Negative) 07/12/19 15:03 Urine WBC (Auto) 1-5 /hpf (0-5) 07/12/19 15:03 Urine RBC (Auto) 0-4 /hpf (0-4) 07/12/19 15:03 U Hyaline Cast (Auto) 1-5 /lpf (0-5) 07/12/19 15:03 U Epithel Cells (Auto) >30 /lpf (0-5) H 07/12/19 15:03 Urine Bacteria (Auto) Negative (Negative) 07/12/19 15:03 07/12/19 13:54 Aerobic Blood Culture - Preliminary Blood Gram negative bacilli Anaerobic Blood Culture - Preliminary Gram negative bacilli 07/12/19 13:54 Anaerobic Blood Culture - Preliminary Blood Gram negative bacilli Gram positive cocci clusters Electrocardiogram Date: 07/12/19 Findings: + NSR @ (90) Premature supraventricular complexes
[2019-07-13] MEDS ORDERED: LIDOCAINE HCL 2% (LOCAL) INJ 50 ML VIAL ONE (15:14)
[2019-07-13] MEDS ORDERED: PROPOFOL IV EMULSION 10 MG/ML 20 ML VIAL IV ONE ×2 (15:15→16:38)
[2019-07-13] MEDS ORDERED: fentaNYL citrate 100 MCG/2 ML VIAL ONE (15:15)
[2019-07-13] MEDS ORDERED: PHENYLEPHRINE 100MCG/ML 5ML SYR IV PRN (15:16)
[2019-07-13] MEDS ORDERED: fentaNYL citrate 100 MCG/2 ML VIAL IV PRN (15:16)
[2019-07-13] MEDS ORDERED: ATROPINE SULFATE 0.1 MG/ML 10ML SYR IV PRN (15:16)
[2019-07-13] MEDS ORDERED: ONDANSETRON INJ 2 MG/ML 2 ML VIAL IV PRN (15:16)
[2019-07-13] MEDS ORDERED: LABETALOL HCL IV 5 MG/ML 20ML IV PRN (15:16)
[2019-07-13] MEDS ORDERED: ePHEDrine sulfate 50 MG/ML AMP IV PRN (15:16)
[2019-07-13] MEDS ORDERED: LIDOCAINE HCL 2% 2 ML VIAL/AMP(20MG/ML) INFIL ONE (15:17)
[2019-07-13] MEDS ORDERED: ONDANSETRON INJ 2 MG/ML 2 ML VIAL ONE (15:17)
[2019-07-13] MEDS ORDERED: PHENYLEPHRINE 100MCG/ML 5ML SYR ONE (16:08)
--- NOTE | 2019-07-13 16:41 | Post Operative Brief Note ---
PG Immediate Post Op with CF Date of Surgery July 13, 2019 Pre & Post Diagnosis Operation Date: 07/13/19 17:35 Pre-Op Diagnosis: LEFT BIG TOE ULCER Post-Op Diagnosis: LEFT BIG TOE ULCER I identified the patient and participated in the time-out.: Yes Procedure Operation Date: 07/13/19 17:35 Actual Procedures p Left Great Toe Amputation with Incision and Drainage(Left) - Timo Hernandes Surgeon Timo Hernandes Nailhead Setter Yariel Gomes PA-C Estimated Blood Loss 5 Findings See Below (Necrotic distal phalanx with obvious communication to the plantar ulcer. The head of the proximal phalanx also. The involved was debrided back. The EHL and FHL were tenodesed and the soft tissue was closed without tension.) Specimens Specimen Description: Permanent Specimen: A) Left Great Toe
--- NOTE | 2019-07-13 16:48 | Operative Report ---
PG Post Operative Report Pre & Post Diagnosis Operation Date: 07/13/19 17:35 Pre-Op Diagnosis: LEFT BIG TOE ULCER Post-Op Diagnosis: LEFT BIG TOE ULCER I identified the patient and participated in the time-out.: Yes Procedure Operation Date: 07/13/19 17:35 Actual Procedures p Left Great Toe Amputation with Incision and Drainage(Left) - Timo Hernandes Surgeon Timo Hernandes Product Support Engineer Yariel Gomes PA-C Estimated Blood Loss 5 Findings See Below Necrotic plantar aspect of the distal great toe communicated to an osteomyelitic distal phalanx. The interphalangeal joint was involved and the cartilage of the head of the proximal phalanx appeared to be involved as well. The bone at the distal aspect of the proximal phalanx was also resected back to healthy margins. The EHL and FHL were tenodesed over the top using 2-0 Monocryl. The soft tissues are closed without tension using nylon suture. Specimens Necrotic great toe tissue for culture and pathology Anesthesia Type MAC Regional Complications none Disposition Accompanied Patient To Recovery: No Disposition: Recovery Room Indications 79-year-old female with a chronic ulceration of her left great toe that worsened became cellulitic. An MRI is obtained by the admitting primary team which demonstrated osteomyelitis involvement of the distal phalanx. Her and her were counseled on the recommended treatment for surgical debridement and likely great toe amputation at the trans-phalanx level. We discussed the risks and benefits of this procedure in detail. I felt strongly this is the way to appropriately manage this deep infection so that it may be eradicated. They are agreeable to proceed. Description of Procedure On the day of surgery, the patient was greeted in the preoperative holding area. The informed consent was reviewed and confirmed by myself and the patient. The patient identified the surgical site and was marked by me. The patient was then turned over to anesthesia. She is taken to the operating place upon the OR table. All bony problems were well-padded. The anesthesiologist performed an ankle block with excellent effect. The left lower extremity was exposed. The left foot and ankle were prepped and draped in usual sterile fashion. Surgical timeout was called by the it program auditor nurse and verified all present. The foot and ankle were exsanguinated using an Esmarch bandage which was used to create the tourniquet. Tourniquet time was less than 15 minutes. A fishmouth incision was made along the tibial border of the great toe and carried out an ellipse the necrotic segment which involved her toenail and nail bed. The fibular skin was mostly healthy but hypertrophic callus was ellipsed out for appropriate skin mobility. This dissection was carried down to the level of the interphalangeal joint. The joint was opened up and this entire distal phalanx segment was excised en bloc with this necrotic skin and sent for pathology. The wound was then thoroughly irrigated with approximately 500 mL of sterile saline. The cartilage on the proximal phalanx appeared to be mathias and desiccated. For that reason it was debrided back. The subchondral bone debrided back as well easily. We resected 4 to 5 mm of the proximal phalanx head to reveal more healthy bone. This allowed easy excursion of the EHL and FHL tendons which were tenodesis together through the spongy bone at the end of the phalanx using a single 2-0 Monocryl absorbable suture. The skin was then freshened up on all sides. We mobilized the skin to allow tension-free closure. We did resect more dorsal skin back to ensure there was no thin nailbed wall remaining. We then approximated the skin by pulling the plantar aspect of dorsally, using 2-0 nylon suture. The wound was dressed with sterile Xeroform sterile gauze and Curlex dressing. ABDs were placed over the toe and web roll was used to create a stocking, which was contained by Coban dressing. Patient woke from sedation the operative without complication was transferred to the PACU in stable condition. I attest to the content of the Intraoperative Record and any orders documented therein. Any exceptions are noted below.
--- NOTE | 2019-07-13 17:00 | Anesthesiology Progress Note ---
Date of Service July 13, 2019 Anesthesia Post Procedure Vital Signs Vital Signs: Temp Pulse Pulse Pulse Resp BP BP 07/13/19 16:49 36.6 C 83 16 07/13/19 14:58 36.8 C 77 22 136/82 07/13/19 11:00 36.7 C 69 18 07/13/19 07:16 58 L 07/13/19 06:24 36.7 C 67 20 103/60 07/13/19 03:29 36.5 C 62 19 07/12/19 23:39 36.9 C 72 20 07/12/19 20:45 68 07/12/19 20:14 64 07/12/19 19:28 36.6 C 64 16 07/12/19 18:42 37.0 C 69 18 07/12/19 18:01 73 16 116/75 07/12/19 18:00 72 14 07/12/19 17:30 73 17 BP Pulse Ox 07/13/19 16:49 126/77 97 07/13/19 14:58 100 07/13/19 11:00 118/71 98 07/13/19 07:16 07/13/19 06:24 93 07/13/19 03:29 115/62 99 07/12/19 23:39 137/75 98 07/12/19 20:45 07/12/19 20:14 134/64 07/12/19 19:28 102/65 96 07/12/19 18:42 111/71 97 07/12/19 18:01 97 07/12/19 18:00 07/12/19 17:30 Pain Intensity Bilateral Hand: Pain Intensity: 1 Bilateral Foot: Pain Intensity: 1 Transfer of Care Handoff Completed per policy Notes Mental Status: alert / awake / arousable Patient Amnestic to Procedure: Yes Nausea / Vomiting: adequately controlled Pain: adequately controlled Airway Patency, RR, SpO2: stable & adequate BP & HR: stable & adequate Hydration State: stable & adequate Anesthetic Complications: no major complications apparent and Pt Satisfied with anesthetic care Notes: The patient is awake and comfortable. Her vitals are stable.
--- NOTE | 2019-07-13 17:51 | Hospitalist Progress Note ---
Date of Service July 13, 2019 Assessment & Plan (1) Bacteremia: Blood culture GNB, 1/2 GPC. Continue Vanc + cefepime. Source suspected to be osteomyelitis/cellulitis. Previous cellulitis resolved without pseudomonas coverage on ceftriaxone Wound culture pending Vital signs relatively normal in ER and since admission therefore unclear diagnosis of sepsis on admission but certainly does not appear septic currently Consult ortho. NPO. LR 100ml/hr. Medically cleared for surgery if required. (2) Osteomyelitis: Suspect main source of bacteremia given minimal cellulitis on today's exam Will likely need surgical amputation. Recent arterial duplex earlier this month - patient left vessels although small vessel occlusion may be occult by sonography. (3) Ulcer of great toe: Necrotic, unstageable ulcer. Rx above. Unclear precipitating event as she feels she just woke up with it; however profound peripheral neuropathy and previous frostbite on her other foot after her boot fell off and she didn't realize she was clearing her iced driveway with bare feet. However doubtful purely pressure ulcer. Possible embolic event from a. fib but arterial doppler previously did not confirm this. (4) Cellulitis: Mostly resolved at this time. Rx as above (5) Peripheral neuropathy: Continue tramadol 50 mg p.o. nightly as needed for pain. (6) Hypertension: Continue lisinopril, diltiazem and metoprolol. Will hold lasix. (7) Asthma: Continue continue home inhalers albuterol 2 puffs 4 times daily as needed. (8) Paroxysmal atrial fibrillation: Not on anticoagulation secondary to chronic epistaxis. Currently in sinus rhythm. Rate controlling strategy with metoprolol and diltiazem. (9) DVT prophylaxis: Will start Lovenox post operatively (10) Discharge planning issues: PT/OT post operatively Subjective Patient sitting comfortably in chair. Reports feeling much better since admission. No further fevers or chills. Reports cellulitis much improved since last admission however she started fevers and chills which prompted her return to the ER. Reports b/l foot pain from peripheral neuropathy however she cannot feel her toe. Review of Systems Review of Systems: All systems reviewed & are unremarkable except as noted in HPI & below Physical Exam Constitutional: well developed; + not well nourished and no acute distress Eyes: + anicteric sclerae; normal pupil size ENMT: external ear and nose normal, oropharynx normal Neck: normal visual inspection Respiratory: normal respiratory effort, lungs clear to auscultation Cardiovascular: RRR, no murmur, no edema Gastrointestinal (Abdomen): normal bowel sounds, soft, nontender, no hepatosplenomegaly Skin: Necrotic end of her left first toe with green edges and strong smell. Seen with wound care and swab taken for microbiology Neurologic: moves all extremities and awake; no focal motor deficits Motor/Sensory: + sensory deficit (peripheral neuropathy to knees b/l) Psychiatric: A+Ox3, euthymic affect Results & Data Vital Signs (Past 12 Hours) Vital Signs Temp Pulse Pulse Resp BP BP Pulse Ox 07/13/19 11:00 36.7 C 69 18 118/71 98 07/13/19 07:16 58 L 07/13/19 06:24 36.7 C 67 20 103/60 93 07/13/19 03:29 36.5 C 62 19 115/62 99 PG Care Time/CCT Total # of Minutes Spent Total Time Spent with Patient: Total time spent is greater than 50% in coordination of care (as documented) at patient's floor/unit and/or counseling patient: (1) Ulcer of great toe Laterality: left Non-pressure ulcer stage: unspecified non-pressure ulcer stage Qualified Code(s): L97.529 - Non-pressure chronic ulcer of other part of left foot with unspecified severity (2) Cellulitis Laterality: left Site of cellulitis: extremity Site of cellulitis of extremity: toe Qualified Code(s): L03.032 - Cellulitis of left toe (3) Peripheral neuropathy Peripheral neuropathy type: polyneuropathy, other Qualified Code(s): G62.89 - Other specified polyneuropathies (4) Hypertension Hypertension type: essential hypertension Qualified Code(s): I10 - Essential (primary) hypertension (5) Asthma Asthma severity: mild Asthma persistence: intermittent Asthma complication type: uncomplicated Qualified Code(s): J45.20 - Mild intermittent asthma, uncomplicated (6) Osteomyelitis Osteomyelitis type: other acute Osteomyelitis location: other site Qualified Code(s): M86.18 - Other acute osteomyelitis, other site
--- NOTE | 2019-07-13 20:54 | Wound Consultation ---
Date of Consultation July 13, 2019 Assessment & Plan (1) Ulcer of great toe: This is a 79 year old female with cellulitis, ulcer, osteomyelitis and necrosis of left great toe. No debridement done at bedside. Wound painted with betadine. Due to severity of infection, patient will likely benefit from amputation. Patient is awaiting orthopedic consult. Thank you for allowing me to participate in the care of this patient. History of Present Illness Reason for Consultation: cellulitis great toe Attending Physician: Dom Lopez MD History of Present Illness This is a 79 year old female with history of afib, neuropathy, hypertension and asthma who is admitted with sepsis. Patient has a necrotic great left toe and spread of infection is likely the cause of sepsis. Patient was discharged June 28 with cellulitis that was apparently improving. MRI is positive for osteomyelitis. Allergies Allergy/AdvReac Type Severity Reaction Status Date / Time Penicillins Allergy Unknown RASH Verified 07/12/19 15:07 Sulfa (Sulfonamide Allergy Unknown RASH Verified 07/12/19 15:07 Antibiotics) oxycodone AdvReac Unknown "A BAD Verified 07/12/19 15:07 TRIP" Urea Allergy Unknown RASH Uncoded 07/12/19 15:07 Home Medications Home Medications Medication Instructions Recorded Confirmed Type Premarin 0.625 mg PO HS 06/25/19 07/12/19 History albuterol sulfate 2 puff INHALATION QID PRN 06/25/19 07/12/19 History aspirin [Aspir-Low] 81 mg PO HS 06/25/19 07/12/19 History diltiazem HCl [Cartia XT] 120 mg PO HS 06/25/19 07/12/19 History furosemide 20 mg PO BID 06/25/19 07/12/19 History lisinopril [Zestril] 5 mg PO QAM 06/25/19 07/12/19 History magnesium oxide 400 mg PO BID 06/25/19 07/12/19 History metoprolol succinate [Toprol XL] 25 mg PO HS 06/25/19 07/12/19 History omeprazole 20 mg PO HS 06/25/19 07/12/19 History polysaccharide iron complex 150 mg PO HS 06/25/19 07/12/19 History [Ferrex 150] ropinirole [Requip] 0.5 mg PO HS 06/25/19 07/12/19 History tramadol [Ultram] 50 mg PO Q6 PRN 06/25/19 07/12/19 History Patient History Medical History Afib Asthma (Chronic) Hypertension (Chronic) Osteoarthritis (Chronic) Peripheral neuropathy Surgical History History of hysterectomy (Chronic) History of laparotomy (Chronic) "for ruptured ovarian cyst" History of tubal ligation (Chronic) Family History Other Family history non-contributory Social History Preferred Language: Bahamian Communication Ability: Effective 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 Toe is necrotic with foul odor. There is drainage. Neurologic: awake; not confused Psychiatric: A+Ox3, euthymic affect Results & Data Vital Signs (Past 12 Hours) Vital Signs Temp Pulse Pulse Pulse Resp BP BP 07/13/19 19:30 36.5 C 81 20 146/77 H 07/13/19 19:25 71 07/13/19 18:00 36.5 C 77 18 155/95 H 07/13/19 17:30 36.8 C 72 18 150/79 H 07/13/19 17:05 36.6 C 72 16 132/80 07/13/19 16:55 83 16 129/77 07/13/19 16:49 36.6 C 83 16 126/77 07/13/19 14:58 36.8 C 77 22 136/82 07/13/19 11:00 36.7 C 69 18 118/71 Pulse Ox 07/13/19 19:30 95 07/13/19 19:25 07/13/19 18:00 97 07/13/19 17:30 95 07/13/19 17:05 97 07/13/19 16:55 97 07/13/19 16:49 97 07/13/19 14:58 100 07/13/19 11:00 98 PG Care Time/CCT Total # of Minutes Spent Total Time Spent with Patient: Total time spent is greater than 50% in coordination of care (as documented) at patient's floor/unit and/or counseling patient: (1) Ulcer of great toe Laterality: left Non-pressure ulcer stage: unspecified non-pressure ulcer stage Qualified Code(s): L97.529 - Non-pressure chronic ulcer of other part of left foot with unspecified severity
[2019-07-13] MEDS: ROPINIROLE HCL 0.25 MG TABLET PO SCH (21:03)
[2019-07-13] MEDS: PANTOprazole 40 MG TAB PO SCH (21:04)
[2019-07-13] MEDS: ASPIRIN 81 MG ECTAB PO SCH (21:04)
[2019-07-13] MEDS: IRON POLYSACCHARIDE COMPLEX 150 MG CAPSULE PO SCH (21:05)
[2019-07-13] MEDS: MAGNESIUM OXIDE 400 MG TAB PO SCH (21:06)
[2019-07-13] MEDS: METOPROLOL SUCC 25MG EXT REL TAB PO SCH (21:07)
[2019-07-13] MEDS: MoRPHine SULFATE 2 MG/ML CARP IV PRN (21:53)
[2019-07-14] MEDS: MoRPHine SULFATE 2 MG/ML CARP IV PRN (01:43)
[2019-07-14] MEDS: LACTATED RINGER'S 1,000 ML IV SCH (01:43)
[2019-07-14 06:05] LABS: Hemoglobin 9.8 g/dL (12.0-16.0); Mean Corpuscular Hemoglobin 35.4 pg (25-34); Mean Corpuscular Hgb Conc 33.8 g/dL (32-36); Mean Corpuscular Volume 104.7 fL (80-100); Mean Platelet Volume 9.9 fL (7.4-10.4); Platelet Count 165 K/uL (130-400); RDW Coefficient of Variation 13.6 % (11.5-14.5); RDW Standard Deviation 51.4 fL (36.4-46.3); Red Blood Count 2.77 M/uL (4.2-5.4); White Blood Count 7.04 K/uL (4.8-10.8)
[2019-07-14 06:38] LABS: BUN Creatinine Ratio 13.7 (10-20); Calcium 7.7 mg/dl (8.5-10.1); Creatinine Clr Calc Pharmacy 42.6 ml/min; Est GFR (African American) 67.3; Est GFR (Non-African American) 58.1
--- NOTE | 2019-07-14 07:55 | Orthopedic Progress Note ---
Date of Service July 14, 2019 Assessment & Plan (1) Status post amputation of left great toe: The patient is weightbearing as tolerated. She is to remain in the left brace/shoe, especially with attempted weight bearing. She can continue routine DVT prophylaxis with Lovenox regimen. DVT prophylaxis should last 6 weeks. 24 hours of antibiotic prophylaxis should be continued. Her dressings should not be changed until post op day 2, at the earliest. If any discharge noted until then, her dressings will be reinforced. Patient should continue pain medication as neeeded. Supervising Physician Co-Signing Physician Notes Agree with the physician's note. The plan will be for her to be weightbearing as tolerated in a postop shoe, that was provided, with primary weightbearing through the heel. She should be min imally ambulatory, only for hygiene and transfers. This should last her 2 weeks or until the wound is well-healed. From an orthopedic perspective, she can be discharged when medically stable for outpatient follow-up. Consider in 10 to 14 days from surgery. Continue antibiotics per primary team. Ervin Pritchard is a 79 year old female who is 1 day s/p left great toe incision and drainage with distal phalanx amputation. States she did not sleep well throughout the night but reports her pain was mostly well controlled. She did get up to go to the bathroom with the help of her nurse. States weight bearing to the bathroom was not too difficult. She was wearing her foot boot and plans to continue doing so. She denied any fever, chills, or sweats. She has no complaints this morning. Review of Systems Constitutional: no fever, no chills and no problem reported Eyes: as per Subjective / HPI; no problem reported Ear, Nose, Mouth, Throat: as per Subjective / HPI; no problem reported Respiratory: as per Subjective / HPI; no problem reported Cardiovascular: no edema and no problem reported Gastrointestinal: no nausea, no vomiting and no problem reported Musculoskeletal: as per Subjective / HPI Integumentary: as per Subjective / HPI; no problem reported Neurologic: + numbness; no tingling, no paresthesia and no problem reported Psychiatric: no problem reported Endocrine: as per Subjective / HPI Hematologic / Lymphatic: as per Subjective / HPI Allergy / Immunological: no problem reported Physical Exam Musculoskeletal: Patient was A+Ox3, laying comfortably in her bed, in no acute distress. Her dressings were unchanged for exam. Her foot shoe was removed. The dressings appeared well fit with no visible discharge. She demonstrated full active ROM with plantarflexion, dorsiflexion, inversion, and eversion of her bilateral feet with appropriate EHL mechanics. She had no sensation to light touch of the digits of her left foot. 2+ distal pulses of bilateral lower extremities appreciated. Capillary refill of bilateral lower extremity digits was <2 seconds. Results & Data Vital Signs (Past 12 Hours) Vital Signs Temp Pulse Pulse Resp BP BP Pulse Ox 07/14/19 06:23 36.8 C 86 20 147/77 H 94 07/14/19 03:06 37.2 C 84 19 122/71 96 07/14/19 00:46 72 07/13/19 23:50 36.9 C 78 20 111/67 99 07/13/19 23:15 07/13/19 21:09 91 H 132/75 Pulse Ox 07/14/19 06:23 07/14/19 03:06 07/14/19 00:46 07/13/19 23:50 07/13/19 23:15 99 07/13/19 21:09 PG Care Time/CCT Total # of Minutes Spent Total Time Spent with Patient: Total time spent is greater than 50% in coordination of care (as documented) at patient's floor/unit and/or counseling patient: Coding Level of Care Code 16866 Subseq Hosp Care Lvl 1 Diagnoses Status post amputation of left great toe Z89.412
[2019-07-14] MEDS: TRAMADOL HCL 50 MG TABLET PO PRN ×2 (07:56→16:48)
[2019-07-14] MEDS: MAGNESIUM OXIDE 400 MG TAB PO SCH ×2 (07:57→20:30)
[2019-07-14] MEDS: lisinopriL 5 MG TAB PO SCH (07:57)
--- NOTE | 2019-07-14 08:33 | Anesthesiology Progress Note ---
Date of Service July 14, 2019 Anesthesia Post Procedure Vital Signs Vital Signs: Temp Pulse Pulse Pulse Resp BP BP 07/14/19 06:23 36.8 C 86 20 147/77 H 07/14/19 03:06 37.2 C 84 19 122/71 07/14/19 00:46 72 07/13/19 23:50 36.9 C 78 20 111/67 07/13/19 23:15 07/13/19 21:09 91 H 132/75 07/13/19 19:30 36.5 C 81 20 146/77 H 07/13/19 19:25 71 07/13/19 18:00 36.5 C 77 18 155/95 H 07/13/19 17:30 36.8 C 72 18 150/79 H 07/13/19 17:05 36.6 C 72 16 132/80 07/13/19 16:55 83 16 129/77 07/13/19 16:49 36.6 C 83 16 126/77 07/13/19 14:58 36.8 C 77 22 136/82 07/13/19 11:00 36.7 C 69 18 118/71 Pulse Ox Pulse Ox 07/14/19 06:23 94 07/14/19 03:06 96 07/14/19 00:46 07/13/19 23:50 99 07/13/19 23:15 99 07/13/19 21:09 07/13/19 19:30 95 07/13/19 19:25 07/13/19 18:00 97 07/13/19 17:30 95 07/13/19 17:05 97 07/13/19 16:55 97 07/13/19 16:49 97 07/13/19 14:58 100 07/13/19 11:00 98 Pain Intensity Bilateral Hand: Pain Intensity: 1 Bilateral Foot: Pain Intensity: 1 Notes Mental Status: alert / awake / arousable and participated in evaluation Patient Amnestic to Procedure: Yes Nausea / Vomiting: adequately controlled Pain: adequately controlled Airway Patency, RR, SpO2: stable & adequate BP & HR: stable & adequate Hydration State: stable & adequate Anesthetic Complications: no major complications apparent and Pt Satisfied with anesthetic care
[2019-07-14] MEDS ORDERED: VANCOMYCIN TROUGH ONE (13:30)
[2019-07-14] MEDS ORDERED: VANCOMYCIN CONSULT ACTIVE PRN (14:09)
[2019-07-14] MEDS ORDERED: VANCOMYCIN HCL 1,000 MG in SODIUM CHLORIDE 0.9% 250 ML IV SCH (14:15)
--- NOTE | 2019-07-14 14:20 | Pharmacy Report ---
Pharmacy Abx Dose Short Note - Date of Service July 14, 2019 - Assessment & Plan Assessment 79 year old F receiving IV Cefepime for gram negative bacteremia * 1/2 BC also growing gram positive cocci in clusters. S.aureus reported in toe wound (susceptibilities pending) * pt on vancomycin + cefepime 07/12-07/13 PM for treatment of L big toe ulcer. Now s/p amputation. * case discussed with Hospitalist service; resume vancomycin until further identification of gram positive cocci in BC is available Plan Vancomycin * Resume Vancomycin 1000mg (~17mg/kg) IV q24 * Goal trough level for cellulitis : ~15 mcg/mL * Trough level ordered for: 07/15/19 @ 1330 Pharmacy will continue to follow and will adjust dose/frequency as necessary. Thank you.
[2019-07-14] MEDS: CEFEPIME 2,000 MG in SYRINGE 7.5 ML IV SCH (14:40)
[2019-07-14] MEDS ORDERED: FUROSEMIDE 40 MG TAB PO ONE (16:17)
[2019-07-14] MEDS: IRON POLYSACCHARIDE COMPLEX 150 MG CAPSULE PO SCH (20:30)
[2019-07-14] MEDS: METOPROLOL SUCC 25MG EXT REL TAB PO SCH (20:30)
[2019-07-14] MEDS: PANTOprazole 40 MG TAB PO SCH (20:30)
[2019-07-14] MEDS: ROPINIROLE HCL 0.25 MG TABLET PO SCH (20:30)
[2019-07-14] MEDS: ASPIRIN 81 MG ECTAB PO SCH (20:30)
--- NOTE | 2019-07-14 22:58 | Hospitalist Progress Note ---
Date of Service July 14, 2019 Assessment & Plan (1) Bacteremia: Blood culture GNB, 1/2 GPC. Continue Vanc + cefepime. Source suspected to be osteomyelitis/cellulitis. Previous cellulitis resolved without pseudomonas coverage on ceftriaxone Wound culture pending but multiple organisms of gram stain Vital signs relatively normal in ER and since admission therefore unclear diagnosis of sepsis on admission but certainly does not appear septic currently Can transfer to surgical jhaveri as stable post operatively. (2) Ulcer of great toe: As per osteomyelitis below. (3) Osteomyelitis: POD #1 surgical amputation of left great toe. Appreciate orthopedic management. Weightbearing as tolerated in left brace/shoe. DVT prophylaxis recommended for 6 weeks. Given bacteremia she will have to be treated for longer than 24 hours with antibiotics however. (4) Cellulitis: None seen beyond dressing. (5) Peripheral neuropathy: Continue tramadol 50 mg p.o. nightly as needed for pain. (6) Hypertension: Continue lisinopril, diltiazem and metoprolol. Restart back on lasix given hypertension. (7) Asthma: Continue continue home inhalers albuterol 2 puffs 4 times daily as needed. (8) Paroxysmal atrial fibrillation: Not on anticoagulation secondary to chronic epistaxis. Currently in sinus rhythm. Rate controlling strategy with metoprolol and diltiazem. (9) DVT prophylaxis: Lovenox 40mg SQ daily (10) Discharge planning issues: PT/OT post operatively Subjective Patient seen in AM lying comfortably in bed. No acute events overnight. No concerns or questions for me today. Understands she has bacteremia from her infection and she is very relaxed about the whole ordeal. Review of Systems Review of Systems: All systems reviewed & are unremarkable except as noted in HPI & below Physical Exam Constitutional: well developed; + not well nourished and no acute distress Eyes: + anicteric sclerae; normal pupil size ENMT: external ear and nose normal, oropharynx normal Neck: normal visual inspection Respiratory: normal respiratory effort, lungs clear to auscultation Cardiovascular: RRR, no murmur, no edema Gastrointestinal (Abdomen): normal bowel sounds, soft, nontender, no hepatosplenomegaly Neurologic: moves all extremities and awake; no focal motor deficits Speech / Cognition: normal speech Motor/Sensory: + sensory deficit (peripheral neuropathy mainly to knees b/l, milder on thighs); no tremor and no pronator drift Psychiatric: A+Ox3, euthymic affect Results & Data Vital Signs (Past 12 Hours) Vital Signs Temp Pulse Pulse Pulse Pulse Resp BP 07/14/19 20:59 37.8 C H 07/14/19 20:29 68 07/14/19 18:09 37.6 C H 79 16 149/89 H 07/14/19 15:48 37.5 C 82 18 183/92 H 07/14/19 15:18 66 07/14/19 11:16 36.6 C 82 18 158/92 H BP Pulse Ox 07/14/19 20:59 07/14/19 20:29 163/91 H 07/14/19 18:09 95 07/14/19 15:48 179/94 H 98 07/14/19 15:18 07/14/19 11:16 100 PG Care Time/CCT Total # of Minutes Spent Total Time Spent with Patient: Total time spent is greater than 50% in coordination of care (as documented) at patient's floor/unit and/or counseling patient: Coding Level of Care Code 30645 Subseq Hosp Care Lvl 2 Diagnoses Bacteremia R78.81 Ulcer of great toe L97.529 Laterality: left Non-pressure ulcer stage: unspecified non-pressure ulcer stage Osteomyelitis M86.18 Osteomyelitis type: other acute Osteomyelitis location: other site Cellulitis L03.032 Laterality: left Site of cellulitis: extremity Site of cellulitis of extremity: toe Peripheral neuropathy G62.89 Peripheral neuropathy type: polyneuropathy, other Hypertension I10 Hypertension type: essential hypertension Asthma J45.20 Asthma severity: mild Asthma persistence: intermittent Asthma complication type: uncomplicated Paroxysmal atrial fibrillation I48.0 DVT prophylaxis Z29.9 Discharge planning issues Z02.9 (1) Ulcer of great toe Laterality: left Non-pressure ulcer stage: unspecified non-pressure ulcer stage Qualified Code(s): L97.529 - Non-pressure chronic ulcer of other part of left foot with unspecified severity (2) Osteomyelitis Osteomyelitis type: other acute Osteomyelitis location: other site Qualified Code(s): M86.18 - Other acute osteomyelitis, other site (3) Cellulitis Laterality: left Site of cellulitis: extremity Site of cellulitis of extremity: toe Qualified Code(s): L03.032 - Cellulitis of left toe (4) Peripheral neuropathy Peripheral neuropathy type: polyneuropathy, other Qualified Code(s): G62.89 - Other specified polyneuropathies (5) Hypertension Hypertension type: essential hypertension Qualified Code(s): I10 - Essential (primary) hypertension (6) Asthma Asthma severity: mild Asthma persistence: intermittent Asthma complication type: uncomplicated Qualified Code(s): J45.20 - Mild intermittent asthma, uncomplicated
[2019-07-14] MEDS ORDERED: ENOXAPARIN INJ 40 MG/0.4 ML SYR SQ ONE (23:15)
[2019-07-15] MEDS: TRAMADOL HCL 50 MG TABLET PO PRN ×3 (03:30→20:57)
[2019-07-15 05:36] LABS: Hematocrit (blood only) 29.5 % (37-47); Hemoglobin 10.1 g/dL (12.0-16.0); Mean Corpuscular Hemoglobin 35.2 pg (25-34); Mean Corpuscular Hgb Conc 34.2 g/dL (32-36); Mean Corpuscular Volume 102.8 fL (80-100); Mean Platelet Volume 9.8 fL (7.4-10.4); Platelet Count 180 K/uL (130-400); RDW Coefficient of Variation 13.5 % (11.5-14.5); RDW Standard Deviation 50.3 fL (36.4-46.3); Red Blood Count 2.87 M/uL (4.2-5.4); White Blood Count 7.53 K/uL (4.8-10.8)
[2019-07-15 05:56] LABS: BUN Creatinine Ratio 12.8 (10-20); Calcium 7.6 mg/dl (8.5-10.1); Creatinine Clr Calc Pharmacy 48.2 ml/min; Est GFR (African American) 78.3; Est GFR (Non-African American) 67.5; Potassium 3.6 mmol/L (3.5-5.1)
[2019-07-15] MEDS: MAGNESIUM OXIDE 400 MG TAB PO SCH ×2 (08:21→20:30)
[2019-07-15] MEDS: lisinopriL 5 MG TAB PO SCH (08:21)
--- NOTE | 2019-07-15 08:39 | Orthopedic Progress Note ---
Date of Service July 15, 2019 Assessment & Plan (1) Status post amputation of left great toe: Postop day 2. The patient is to remain weightbearing as tolerated in her postop shoe, with primary weightbearing through the heel. She should remain minimally ambulatory, only for hygiene and transfers. This should last her 2 weeks or until the wound is well-healed. From an orthopedic perspective, she can be discharged when medically stable for outpatient follow-up in 10-14 days from 07/13/19. Continue antibiotics per primary team. Continue routine DVT prophylaxis with Lovenox regimen. This should continue for at least 6 weeks. Her dressings do not need to be changed until postop day 3, dressings my be reinforced if drainage becomes visible before then. Her will help with this when she returns home as well. She should continue pain medication as needed. Subjective Francheska is 2 days s/p incision and drainage with amputation of the distal phalanx of her left great toe. She is doing very well today and states her pain is well controlled. She recently started tramadol for pain which has helped significantly. She is happy with this regimen. She is still not sleeping very well through the night because she has to get up to go to the bathroom multiple times due to the Lasix. She was seen by PT yesterday. Reports she was walking through the halls with and without a walker while PT was assisting her. She has been wearing her postop shoe and reports no discomfort with it. She is excited to see us in the office after discharge. Review of Systems Constitutional: no fever, no chills and no problem reported Eyes: as per Subjective / HPI; no problem reported Ear, Nose, Mouth, Throat: as per Subjective / HPI; no problem reported Respiratory: as per Subjective / HPI; no problem reported Cardiovascular: no edema and no problem reported Gastrointestinal: no nausea, no vomiting and no problem reported Musculoskeletal: as per Subjective / HPI Integumentary: as per Subjective / HPI; no problem reported Neurologic: no tingling, no paresthesia and no problem reported Psychiatric: no problem reported Endocrine: as per Subjective / HPI Hematologic / Lymphatic: as per Subjective / HPI Allergy / Immunological: no problem reported Physical Exam Musculoskeletal: Patient was A+Ox3, laying comfortably in her bed, in no acute distress. Her dressings were unchanged for exam. Her postop shoe was removed. The dressings appeared well fit with no visible discharge. She demonstrated full active ROM with plantarflexion, dorsiflexion, inversion, and eversion of her bilateral feet with appropriate EHL mechanics. She had no sensation to light touch of the digits of her bilateral feet. 2+ distal pulses of bilateral lower extremities appreciated. Capillary refill of bilateral lower extremity digits was <2 seconds. Results & Data Vital Signs (Past 12 Hours) Vital Signs Temp Pulse Resp BP BP Pulse Ox 07/15/19 07:41 37 C 76 16 123/76 98 07/14/19 23:11 37.5 C 84 16 137/86 97 07/14/19 20:59 37.8 C H PG Care Time/CCT Total # of Minutes Spent Total Time Spent with Patient: Total time spent is greater than 50% in coordination of care (as documented) at patient's floor/unit and/or counseling patient: Coding Level of Care Code 24903 Subseq Hosp Care Lvl 1 Diagnoses Status post amputation of left great toe Z89.412
[2019-07-15] MEDS: FUROSEMIDE 40 MG TAB PO SCH (09:07)
[2019-07-15] MEDS: cefTRIAXone SODIUM 2,000 MG in DEXTROSE 5% 50 ML IV SCH (11:46)
[2019-07-15] MEDS ORDERED: VANCOMYCIN TROUGH ONE (13:30)
[2019-07-15] MEDS: ASPIRIN 81 MG ECTAB PO SCH (20:27)
[2019-07-15] MEDS: ENOXAPARIN INJ 40 MG/0.4 ML SYR SQ SCH (20:29)
[2019-07-15] MEDS: PANTOprazole 40 MG TAB PO SCH (20:30)
[2019-07-15] MEDS: ROPINIROLE HCL 0.25 MG TABLET PO SCH (20:31)
[2019-07-15] MEDS: IRON POLYSACCHARIDE COMPLEX 150 MG CAPSULE PO SCH (20:31)
[2019-07-15] MEDS: METOPROLOL SUCC 25MG EXT REL TAB PO SCH (20:55)
--- NOTE | 2019-07-15 23:58 | Hospitalist Progress Note ---
Date of Service July 15, 2019 Assessment & Plan (1) Bacteremia: Morganella and MSSA bacteremia. Given unclear cause of ulcer in the first place and MSSA will get TTE to assess for vegetations although no murmur heard on exam or peripheral stigmata of endocarditis. Vital signs relatively normal in ER and since admission therefore unclear diagnosis of sepsis on admission but not septic since I have had her as a patient. Will need IV ceftriaxone for 14 days. Repeat blood cultures will be 48 hours on Thursday. If negative will get US guided peripheral line at that time. Anticipated discharge on Thursday. (2) Ulcer of great toe: As per osteomyelitis below. (3) Osteomyelitis: POD #2 surgical amputation of left great toe. Appreciate orthopedic management. Weightbearing as tolerated in left brace/shoe. DVT prophylaxis recommended for 6 weeks. (4) Cellulitis: None seen beyond dressing. (5) Peripheral neuropathy: Continue tramadol 50 mg p.o. nightly as needed for pain. (6) Hypertension: Continue lisinopril, diltiazem and metoprolol, lasix. BP appears stable on this regimen. (7) Asthma: Continue continue home inhalers albuterol 2 puffs 4 times daily as needed. (8) Paroxysmal atrial fibrillation: Not on anticoagulation secondary to chronic epistaxis. Currently in sinus rhythm. Rate controlling strategy with metoprolol and diltiazem. (9) DVT prophylaxis: Lovenox 40mg SQ daily for 6 weeks post op. (10) Discharge planning issues: Continue PT/OT Subjective No acute events overnight. No fevers or chills. No foot pain. No questions or concerns at this time. Review of Systems 2 Review of Systems: All systems reviewed & are unremarkable except as noted in HPI & below Physical Exam Constitutional: well developed; + not well nourished and no acute distress Respiratory: normal respiratory effort, lungs clear to auscultation Cardiovascular: RRR, no murmur, no edema Gastrointestinal (Abdomen): normal bowel sounds, soft, nontender, no hepatosplenomegaly Skin: no rashes, warm and dry (mild dark erythema surrounding left foot toes but no overt cellulitis) Neurologic: moves all extremities and awake; not confused Speech / Cognition: normal speech Motor/Sensory: + sensory deficit (peripheral neuropathy mainly to knees b/l, milder on thighs) Psychiatric: A+Ox3, euthymic affect Results & Data Vital Signs (Past 12 Hours) Vital Signs Temp Pulse Resp BP BP Pulse Ox 07/15/19 23:10 37.1 C 72 18 134/81 99 07/15/19 20:34 100 H 161/88 H 92 07/15/19 15:34 37 C 67 16 156/79 H 96 PG Care Time/CCT Total # of Minutes Spent Total Time Spent with Patient: Total time spent is greater than 50% in coordination of care (as documented) at patient's floor/unit and/or counseling patient: Coding Level of Care Code 86405 Subseq Hosp Care Lvl 2 Diagnoses Bacteremia R78.81 Ulcer of great toe L97.529 Laterality: left Non-pressure ulcer stage: unspecified non-pressure ulcer stage Osteomyelitis M86.18 Osteomyelitis location: other site Osteomyelitis type: other acute Cellulitis L03.032 Laterality: left Site of cellulitis: extremity Site of cellulitis of extremity: toe Peripheral neuropathy G62.89 Peripheral neuropathy type: polyneuropathy, other Hypertension I10 Hypertension type: essential hypertension Asthma J45.20 Asthma complication type: uncomplicated Asthma persistence: intermittent Asthma severity: mild Paroxysmal atrial fibrillation I48.0 DVT prophylaxis Z29.9 Discharge planning issues Z02.9 (1) Cellulitis Laterality: left Site of cellulitis: extremity Site of cellulitis of extremity: toe Qualified Code(s): L03.032 - Cellulitis of left toe (2) Ulcer of great toe Laterality: left Non-pressure ulcer stage: unspecified non-pressure ulcer stage Qualified Code(s): L97.529 - Non-pressure chronic ulcer of other part of left foot with unspecified severity (3) Peripheral neuropathy Peripheral neuropathy type: polyneuropathy, other Qualified Code(s): G62.89 - Other specified polyneuropathies (4) Hypertension Hypertension type: essential hypertension Qualified Code(s): I10 - Essential (primary) hypertension (5) Asthma Asthma complication type: uncomplicated Asthma persistence: intermittent Asthma severity: mild Qualified Code(s): J45.20 - Mild intermittent asthma, uncomplicated (6) Osteomyelitis Osteomyelitis location: other site Osteomyelitis type: other acute Qualified Code(s): M86.18 - Other acute osteomyelitis, other site
[2019-07-16] MEDS: MAGNESIUM OXIDE 400 MG TAB PO SCH ×2 (08:22→20:32)
[2019-07-16] MEDS: lisinopriL 5 MG TAB PO SCH (08:22)
[2019-07-16] MEDS: FUROSEMIDE 40 MG TAB PO SCH (08:22)
--- NOTE | 2019-07-16 11:22 | Orthopedic Progress Note ---
Date of Service July 16, 2019 Assessment & Plan (1) Status post amputation of left great toe: Postop day 3. The patient is to remain weightbearing as tolerated in her postop shoe, with primary weightbearing through the heel. She can be out of bed as tolerated for activities of daily living. Continue antibiotics per primary teamshould be considered deep osteomyelitic infection with the specimen cultures resulted above. Disposition: From an orthopedic perspective, she can be discharged when medically stable for outpatient follow-up in 10-14 days from 07/13/19. No significant increased risk from the surgery or wound in regards to VTE, but she is minimally ambulatory. Aspirin 81 mg is likely sufficient for DVT prophylaxis. Contact with further questions. Ervin Pritchard reports no pain in her toe. She has been compliant with keeping the dressing in place and only weightbearing minimally at the heel. She has no other questions. Physical Exam Physical Exam: No acute distress, lying in bed, pleasant and conversant this morning. Left foot: She is in the postop shoe which was removed. The overlying wrap was taken down to reveal a well approximated incision over the great toe. She has healthy wound edges. There is less than 2-second cap refill with no significant congestion or erythema. The sutures are intact. It was redressed with an OPTi foam lightly. A sock was placed over the dressing. postop shoe was placed back on Results & Data Vital Signs (Past 12 Hours) Vital Signs Temp Pulse Resp BP BP Pulse Ox Pulse Ox 07/16/19 08:23 169/83 H 07/16/19 06:58 36.8 C 79 16 172/87 H 93 07/15/19 23:30 99 Source: Toe,Left Great OV Order: Ordered: Surf Wnd Cul/Sm Comments: Reason for Exam infection Procedure Result Verified Site Gram Stain Final 07/13/19-1418 Gram Stain Result Moderate Gram Positive Cocci Rare Gram Positive Bacilli Rare Gram Negative Bacilli Rare Epithelial Cells No WBCs Seen Surface Wound Culture Final 07/15/19-1135 Organism 1 Morganella morganii Quantity Moderate Sens Sensitivities to Follow +MixWound Plus Moderate Counts of Probable Skin Deanne Organism 2 Staphylococcus aureus Quantity Many Sens Sensitivities to Follow M morganii S aureus RX M.I.C. RX M.I.C. --- --------- --- --------- Amikacin S <=16 Amp/Sul R >16/8 Cefepime S <=4 Cefotaxime S 8 Cefoxitin S <=8 Ceftriaxone S <=1 Ciprofloxacin S <=1 Clindamycin S <=0.5 Daptomycin S 1 Ertapenem S <=1 Erythromycin S <=0.5 Gentamicin S <=4 Imipenem R 4 Levofloxacin S <=2 Oxacillin S <=0.25 Tetracycline S <=4 Tobramycin S <=4 Trimeth/Sulfa S <=2/38 S <=0.5/9.5 Pip/Tazo S <=16 Vancomycin S 2 S = SENSITIVE I = INTERMEDIATE R = RESISTANT Name: VITA BULLARD : 1940 PAGE 1 Printed: 07/16/19 1123 END OF REPORT PG Care Time/CCT Total # of Minutes Spent Total Time Spent with Patient: Total time spent is greater than 50% in coordination of care (as documented) at patient's floor/unit and/or counseling patient: Coding Level of Care Code None Diagnoses Status post amputation of left great toe Z89.412
[2019-07-16] MEDS: TRAMADOL HCL 50 MG TABLET PO PRN (12:07)
[2019-07-16] MEDS: cefTRIAXone SODIUM 2,000 MG in DEXTROSE 5% 50 ML IV SCH (12:08)
[2019-07-16] MEDS: ASPIRIN 81 MG ECTAB PO SCH (20:30)
[2019-07-16] MEDS: ENOXAPARIN INJ 40 MG/0.4 ML SYR SQ SCH (20:30)
[2019-07-16] MEDS: PANTOprazole 40 MG TAB PO SCH (20:30)
[2019-07-16] MEDS: ROPINIROLE HCL 0.25 MG TABLET PO SCH (20:31)
[2019-07-16] MEDS: IRON POLYSACCHARIDE COMPLEX 150 MG CAPSULE PO SCH (20:32)
[2019-07-16] MEDS: METOPROLOL SUCC 25MG EXT REL TAB PO SCH (20:33)
--- NOTE | 2019-07-16 22:07 | Hospitalist Progress Note ---
Date of Service July 16, 2019 Assessment & Plan (1) Bacteremia: Morganella and MSSA bacteremia. Echo without vegetation. Vital signs relatively normal in ER and since admission therefore unclear diagnosis of sepsis on admission but not septic since I have had her as a patient. Will need IV ceftriaxone for 14 days. Follow up blood cultures negative after 24 hours. If negative tomorrow will get US guided peripheral line. Anticipated discharge on Thursday. (2) Ulcer of great toe: As per osteomyelitis below. (3) Osteomyelitis: POD #2 surgical amputation of left great toe. Appreciate orthopedic alhaji pennington. Weightbearing as tolerated in left brace/shoe. DVT prophylaxis recommended for 6 weeks. (4) Cellulitis: None seen beyond dressing. (5) Peripheral neuropathy: Continue tramadol 50 mg p.o. nightly as needed for pain. (6) Hypertension: Continue lisinopril, diltiazem and metoprolol, lasix. BP appears stable on this regimen. (7) Asthma: Continue continue home inhalers albuterol 2 puffs 4 times daily as needed. (8) Paroxysmal atrial fibrillation: Not on anticoagulation secondary to chronic epistaxis. Currently in sinus rhythm. Rate controlling strategy with metoprolol and diltiazem. (9) DVT prophylaxis: Lovenox 40mg SQ daily for 6 weeks post op. (10) Discharge planning issues: Continue PT/OT Subjective No acute events overnight. No question or concerns from patient. Asked if she wished me to update her ex- but patient declined. Review of Systems Review of Systems: All systems reviewed & are unremarkable except as noted in HPI & below Physical Exam Constitutional: well developed; + not well nourished and no acute distress Respiratory: normal respiratory effort, lungs clear to auscultation Cardiovascular: RRR, no murmur, no edema Skin: no rashes, warm and dry (mild dark erythema surrounding left foot toes but no overt cellulitis) Neurologic: moves all extremities and awake; not confused Speech / Cognition: normal speech Motor/Sensory: + sensory deficit (peripheral neuropathy mainly to knees b/l, milder on thighs) Psychiatric: A+Ox3, euthymic affect Results & Data Vital Signs (Past 12 Hours) Vital Signs Temp Pulse Resp BP Pulse Ox 07/16/19 20:35 63 166/93 H 97 07/16/19 15:17 37.0 C 79 17 135/79 93 PG Care Time/CCT Total # of Minutes Spent Total Time Spent with Patient: Total time spent is greater than 50% in coordination of care (as documented) at patient's floor/unit and/or counseling patient: Coding Level of Care Code 10407 Subseq Hosp Care Lvl 2 Diagnoses Bacteremia R78.81 Ulcer of great toe L97.529 Laterality: left Non-pressure ulcer stage: unspecified non-pressure ulcer stage Osteomyelitis M86.18 Osteomyelitis location: other site Osteomyelitis type: other acute Cellulitis L03.032 Laterality: left Site of cellulitis: extremity Site of cellulitis of extremity: toe Peripheral neuropathy G62.89 Peripheral neuropathy type: polyneuropathy, other Hypertension I10 Hypertension type: essential hypertension Asthma J45.20 Asthma complication type: uncomplicated Asthma persistence: intermittent Asthma severity: mild Paroxysmal atrial fibrillation I48.0 DVT prophylaxis Z29.9 Discharge planning issues Z02.9 (1) Cellulitis Laterality: left Site of cellulitis: extremity Site of cellulitis of extremity: toe Qualified Code(s): L03.032 - Cellulitis of left toe (2) Ulcer of great toe Laterality: left Non-pressure ulcer stage: unspecified non-pressure ulcer stage Qualified Code(s): L97.529 - Non-pressure chronic ulcer of other part of left foot with unspecified severity (3) Peripheral neuropathy Peripheral neuropathy type: polyneuropathy, other Qualified Code(s): G62.89 - Other specified polyneuropathies (4) Hypertension Hypertension type: essential hypertension Qualified Code(s): I10 - Essential (primary) hypertension (5) Asthma Asthma complication type: uncomplicated Asthma persistence: intermittent Asthma severity: mild Qualified Code(s): J45.20 - Mild intermittent asthma, uncomplicated (6) Osteomyelitis Osteomyelitis location: other site Osteomyelitis type: other acute Qualified Code(s): M86.18 - Other acute osteomyelitis, other site
[2019-07-17] MEDS ORDERED: LOPERAMIDE HCL 2 MG CAP PO STA (05:13)
[2019-07-17 05:25] LABS: Basophils # (auto) 0.01 K/uL (0-0.2); Basophils % (auto) 0.1 %; Eosinophils # (auto) 0.12 K/uL (0-0.5); Eosinophils % (auto) 1.4 %; Hematocrit (blood only) 29.4 % (37-47); Immature Granulocytes # (auto) 0.02 K/uL (0.00-0.02); Immature Granulocytes % (auto) 0.2 %; Lymphocytes # (auto) 2.98 K/uL (1.2-3.4); Lymphocytes % (auto) 35.6 %; Mean Corpuscular Hemoglobin 34.6 pg (25-34); Mean Corpuscular Volume 101.7 fL (80-100); Mean Platelet Volume 10.1 fL (7.4-10.4); Monocytes # (auto) 1.41 K/uL (0.11-0.59); Monocytes % (auto) 16.8 %; Neutrophils # (auto) 3.83 K/uL (1.4-6.5); Neutrophils % (auto) 45.9 %; Platelet Count 190 K/uL (130-400); RDW Coefficient of Variation 13.4 % (11.5-14.5); RDW Standard Deviation 49.6 fL (36.4-46.3); Red Blood Count 2.89 M/uL (4.2-5.4); White Blood Count 8.37 K/uL (4.8-10.8)
[2019-07-17 05:35] LABS: Partial Thromboplastin Ratio 0.9; Partial Thromboplastin Time 23.9 Seconds (21.0-31.0); Prothrombin Time 10.2 Seconds (9.0-12.0)
[2019-07-17 05:53] LABS: BUN Creatinine Ratio 11.7 (10-20); Calcium 8.2 mg/dl (8.5-10.1); Creatinine Clr Calc Pharmacy 53.4 ml/min; Est GFR (African American) 88.5; Est GFR (Non-African American) 76.3; Potassium 3.5 mmol/L (3.5-5.1)
[2019-07-17] MEDS: lisinopriL 5 MG TAB PO SCH (08:28)
[2019-07-17] MEDS: FUROSEMIDE 40 MG TAB PO SCH ×2 (08:29→08:31)
[2019-07-17] MEDS: MAGNESIUM OXIDE 400 MG TAB PO SCH ×2 (08:29→20:39)
[2019-07-17] MEDS: cefTRIAXone SODIUM 2,000 MG in DEXTROSE 5% 50 ML IV SCH (13:05)
[2019-07-17] MEDS: TRAMADOL HCL 50 MG TABLET PO PRN (14:53)
[2019-07-17] MEDS: LACTOBACILLUS ACIDOPHILUS (FLORANEX) TAB PO SCH (17:34)
[2019-07-17] MEDS: METOPROLOL SUCC 25MG EXT REL TAB PO SCH (20:39)
[2019-07-17] MEDS: ROPINIROLE HCL 0.25 MG TABLET PO SCH (20:39)
[2019-07-17] MEDS: IRON POLYSACCHARIDE COMPLEX 150 MG CAPSULE PO SCH (20:40)
[2019-07-17] MEDS: ENOXAPARIN INJ 40 MG/0.4 ML SYR SQ SCH (20:40)
[2019-07-17] MEDS: ASPIRIN 81 MG ECTAB PO SCH (20:40)
[2019-07-17] MEDS: PANTOprazole 40 MG TAB PO SCH (20:40)
--- NOTE | 2019-07-17 23:27 | Hospitalist Progress Note ---
Date of Service July 17, 2019 Assessment & Plan (1) Bacteremia: Morganella and MSSA bacteremia. Echo without vegetation. Vital signs relatively normal in ER and since admission therefore unclear diagnosis of sepsis on admission but not septic since I have had her as a patient. Will need IV ceftriaxone for 14 days (script with case management). Follow up blood cultures negative after 48 hours. US peripheral line placed 07/17. (2) Ulcer of great toe: As per osteomyelitis below. (3) Osteomyelitis: POD #4 surgical amputation of left great toe. Appreciate orthopedic management. Weightbearing as tolerated in left brace/shoe, pressure on heel. DVT prophylaxis recommended for 6 weeks, Dr Hernandes recommends ASA which she is already on. Since she has no ankle restrictions, agree ASA is adequate alone for DVT prophylaxis. (4) Cellulitis: Present on admission. None seen beyond dressing. (5) Peripheral neuropathy: Continue tramadol 50 mg p.o. nightly as needed for pain. (6) Hypertension: Continue lisinopril, diltiazem and metoprolol, lasix. BP mildly elevated on home meds but would just recommend outpatient f/u. (7) Asthma: Continue continue home inhalers albuterol 2 puffs 4 times daily as needed. (8) Paroxysmal atrial fibrillation: Not on anticoagulation secondary to chronic epistaxis. Currently in sinus rhythm. Rate controlling strategy with metoprolol and diltiazem. (9) DVT prophylaxis: Lovenox 40mg SQ daily (10) Discharge planning issues: Continue PT/OT. Patient is medically stable for discharge pending IV antibiotics to be set up at home (script with casey saw operator). Subjective No acute events overnight. Patient in a good mood. No questions or concerns. Anticipated discharge tomorrow once home antibiotics set up. Review of Systems Review of Systems: All systems reviewed & are unremarkable except as noted in HPI & below Physical Exam Constitutional: well developed; + not well nourished and no acute distress Eyes: + anicteric sclerae; normal pupil size Respiratory: normal respiratory effort, lungs clear to auscultation Cardiovascular: RRR, no murmur, no edema Skin: no rashes, warm and dry (mild dark erythema surrounding left foot toes but no overt cellulitis) Neurologic: moves all extremities and awake; not confused Motor/Sensory: + sensory deficit (peripheral neuropathy mainly to knees b/l, milder on thighs) Psychiatric: A+Ox3, euthymic affect Results & Data Vital Signs (Past 12 Hours) Vital Signs Temp Pulse Resp BP Pulse Ox 07/17/19 20:37 66 158/87 H 95 07/17/19 15:23 36.9 C 65 16 159/88 H 99 PG Care Time/CCT Total # of Minutes Spent Total Time Spent with Patient: Total time spent is greater than 50% in coordination of care (as documented) at patient's floor/unit and/or counseling patient: Coding Level of Care Code 60577 Subseq Hosp Care Lvl 1 Diagnoses Bacteremia R78.81 Ulcer of great toe L97.529 Laterality: left Non-pressure ulcer stage: unspecified non-pressure ulcer stage Osteomyelitis M86.18 Osteomyelitis location: other site Osteomyelitis type: other acute Cellulitis L03.032 Laterality: left Site of cellulitis: extremity Site of cellulitis of extremity: toe Peripheral neuropathy G62.89 Peripheral neuropathy type: polyneuropathy, other Hypertension I10 Hypertension type: essential hypertension Asthma J45.20 Asthma complication type: uncomplicated Asthma persistence: intermittent Asthma severity: mild Paroxysmal atrial fibrillation I48.0 DVT prophylaxis Z29.9 Discharge planning issues Z02.9 (1) Cellulitis Laterality: left Site of cellulitis: extremity Site of cellulitis of extremity: toe Qualified Code(s): L03.032 - Cellulitis of left toe (2) Ulcer of great toe Laterality: left Non-pressure ulcer stage: unspecified non-pressure ulcer stage Qualified Code(s): L97.529 - Non-pressure chronic ulcer of other part of left foot with unspecified severity (3) Peripheral neuropathy Peripheral neuropathy type: polyneuropathy, other Qualified Code(s): G62.89 - Other specified polyneuropathies (4) Hypertension Hypertension type: essential hypertension Qualified Code(s): I10 - Essential (primary) hypertension (5) Asthma Asthma complication type: uncomplicated Asthma persistence: intermittent Asthma severity: mild Qualified Code(s): J45.20 - Mild intermittent asthma, uncomplicated (6) Osteomyelitis Osteomyelitis location: other site Osteomyelitis type: other acute Qualified Code(s): M86.18 - Other acute osteomyelitis, other site
--- NOTE | 2019-07-18 08:31 | Orthopedic Progress Note ---
Date of Service July 18, 2019 Assessment & Plan (1) Status post amputation of left great toe: Postop day 5. The patient is to remain weightbearing as tolerated in her postop shoe, with primary weightbearing through the heel. She can be out of bed as tolerated for activities of daily living. Continue antibiotics per primary teamshould be considered deep osteomyelitic infection. Continue f/u with cultures. Disposition: From an orthopedic perspective, she can be discharged when medically stable for outpatient follow-up in 10-14 days from 07/13/19. No significant increased risk from the surgery or wound in regards to VTE, but she is minimally ambulatory. May continue Lovenox for DVT prophylaxis, Aspirin 81mg is also likely sufficient. Contact with further questions. Ervin Pritchard is post op day five from I+D and left great toe amputation. States last night was her best night of sleep thus far. She also reports increased stability with heel walking while in the post op shoe. She recently had an episode of nausea/abdominal cramping but is no longer experiencing that today. She has no complaints today and denies pain in her left foot. She denies fever, chills, and sweats. Review of Systems Constitutional: no fever, no chills and no problem reported Eyes: as per Subjective / HPI; no problem reported Ear, Nose, Mouth, Throat: as per Subjective / HPI; no problem reported Respiratory: as per Subjective / HPI; no problem reported Cardiovascular: no edema and no problem reported Gastrointestinal: no nausea, no vomiting and no problem reported Musculoskeletal: as per Subjective / HPI Integumentary: as per Subjective / HPI; no problem reported Neurologic: + loss of sensation; no tingling, no paresthesia and no problem reported Psychiatric: no problem reported Endocrine: as per Subjective / HPI Hematologic / Lymphatic: as per Subjective / HPI Allergy / Immunological: no problem reported Physical Exam Physical Exam: Patent was laying comfortably in bed in no acute distress. She was pleasant and conversant this morning. Left foot: She is in the postop shoe which was removed. The overlying OPTi foam was taken down to reveal a well approximated incision over the great toe. The foam did have moderated bloody drainage so a new OPTi foam dressing was reapplied today. She has healthy wound edges. There is less than 2-second cap refill with no significant congestion or erythema. The sutures are intact. A sock was placed over the dressing. postop shoe was placed back on. Results & Data ([facility]) Vital Signs (Past 12 Hours) Vital Signs Temp Pulse Resp BP BP Pulse Ox 07/18/19 07:24 37.0 C 70 16 163/80 H 99 07/17/19 22:57 37 C 68 18 159/84 H 98 07/17/19 20:37 66 158/87 H 95 PG Care Time/CCT Total # of Minutes Spent Total Time Spent with Patient: Total time spent is greater than 50% in coordination of care (as documented) at patient's floor/unit and/or counseling patient: Coding Level of Care Code 27978 Subseq Hosp Care Lvl 1 Diagnoses Status post amputation of left great toe Z89.412
[2019-07-18] MEDS: MAGNESIUM OXIDE 400 MG TAB PO SCH (08:56)
[2019-07-18] MEDS: FUROSEMIDE 40 MG TAB PO SCH (08:56)
[2019-07-18] MEDS: lisinopriL 5 MG TAB PO SCH (08:57)
[2019-07-18] MEDS: LACTOBACILLUS ACIDOPHILUS (FLORANEX) TAB PO SCH ×3 (08:57→18:21)
[2019-07-18] MEDS: cefTRIAXone SODIUM 2,000 MG in DEXTROSE 5% 50 ML IV SCH (12:09)
[2019-07-18] MEDS: TRAMADOL HCL 50 MG TABLET PO PRN (14:36)
--- NOTE | 2019-07-18 15:56 | Hospitalist Progress Note ---
Date of Service July 18, 2019 Assessment & Plan (1) Bacteremia: Morganella and MSSA bacteremia. Echo without vegetation. Vital signs relatively normal in ER and since admission therefore unclear diagnosis of sepsis on admission but not septic since I have had her as a patient. Will need IV ceftriaxone for 14 days (script with case management). Follow up blood cultures negative after 48 hours. US peripheral line placed 07/17. (2) Ulcer of great toe: As per osteomyelitis below. (3) Osteomyelitis: POD #5 surgical amputation of left great toe. Appreciate orthopedic management. Weightbearing as tolerated in left brace/shoe, pressure on heel. DVT prophylaxis recommended for 6 weeks, Dr Hernandes recommends ASA which she is already on. Since she has no ankle restrictions, agree ASA is adequate alone for DVT prophylaxis. (4) Cellulitis: Present on admission. None seen beyond dressing. (5) Peripheral neuropathy: Continue tramadol 50 mg p.o. nightly as needed for pain. (6) Hypertension: Continue lisinopril, diltiazem and metoprolol, lasix. BP mildly elevated on home meds but would just recommend outpatient f/u. (7) Asthma: Continue continue home inhalers albuterol 2 puffs 4 times daily as needed. (8) Paroxysmal atrial fibrillation: Not on anticoagulation secondary to chronic epistaxis. Currently in sinus rhythm. Rate controlling strategy with metoprolol and diltiazem. (9) DVT prophylaxis: Lovenox 40mg SQ daily (10) Discharge planning issues: Continue PT/OT. Patient is medically stable for discharge. Home health will administer IV antibiotics at home check the labs CBC, CMP, CRP ESR every 3 days and blood cultures x2 on July 19, 2019. (script with family preservation caseworker). Follow-up with PCP within a 7 days and follow-up with results. Wound care per home health. Please remove the PICC line after the antibiotics are completed, the full course. Subjective No acute events overnight. Patient in a good mood. No questions or concerns. Anticipated discharge tomorrow once home antibiotics set up. Eager to go home. Patient reports that her ex- helps her at home as well as her neighbors. Patient refused to go to SNF. Patient denies fever, chills, chest pain, shortness of breath, abdominal pain, frequency, urgency. Review of Systems Review of Systems: All systems reviewed & are unremarkable except as noted in HPI & below Physical Exam Constitutional: WD/WN, vitals as above well developed; not ill appearing Eyes: PERRL, conjunctivae normal, anicteric sclerae ENMT: external ear and nose normal, oropharynx normal Neck: trachea midline, no thyromegaly Respiratory: normal respiratory effort, lungs clear to auscultation Cardiovascular: Rate/Rhythm: regular rate and regular rhythm Heart Sounds: normal S1 and normal S2 Vessels: dorsalis pedis pulses present Gastrointestinal (Abdomen): normal bowel sounds, soft, nontender, no hepatosplenomegaly Musculoskeletal: no cyanosis or clubbing, extremities motor strength 5/5 Skin: no rashes, warm and dry Neurologic: patellar DTR's 2+ bilat, sensation intact Psychiatric: A+Ox3, euthymic affect Lymphatic: no cervical or axillary lymphadenopathy Results & Data Vital Signs (Past 12 Hours) Vital Signs Temp Pulse Pulse Pulse Resp BP BP 07/18/19 12:21 37.0 C 82 70 68 16 163/80 H 159/84 H 07/18/19 07:24 37.0 C 70 16 163/80 H Pulse Ox 07/18/19 12:21 99 07/18/19 07:24 99 PG Care Time/CCT Total # of Minutes Spent Total Time Spent with Patient: Total time spent is greater than 50% in coordination of care (as documented) at patient's floor/unit and/or counseling patient: Coding Level of Care Code 01255 Subseq Hosp Care Lvl 3 Diagnoses Bacteremia R78.81 Ulcer of great toe L97.529 Laterality: left Non-pressure ulcer stage: unspecified non-pressure ulcer stage Osteomyelitis M86.18 Osteomyelitis type: other acute Osteomyelitis location: other site Cellulitis L03.032 Laterality: left Site of cellulitis: extremity Site of cellulitis of extremity: toe Peripheral neuropathy G62.89 Peripheral neuropathy type: polyneuropathy, other Hypertension I10 Hypertension type: essential hypertension Asthma J45.20 Asthma severity: mild Asthma persistence: intermittent Asthma complication type: uncomplicated Paroxysmal atrial fibrillation I48.0 DVT prophylaxis Z29.9 Discharge planning issues Z02.9 (1) Ulcer of great toe Laterality: left Non-pressure ulcer stage: unspecified non-pressure ulcer stage Qualified Code(s): L97.529 - Non-pressure chronic ulcer of other part of left foot with unspecified severity (2) Osteomyelitis Osteomyelitis type: other acute Osteomyelitis location: other site Qualified Code(s): M86.18 - Other acute osteomyelitis, other site (3) Cellulitis Laterality: left Site of cellulitis: extremity Site of cellulitis of extremity: toe Qualified Code(s): L03.032 - Cellulitis of left toe (4) Peripheral neuropathy Peripheral neuropathy type: polyneuropathy, other Qualified Code(s): G62.89 - Other specified polyneuropathies (5) Hypertension Hypertension type: essential hypertension Qualified Code(s): I10 - Essential (primary) hypertension (6) Asthma Asthma severity: mild Asthma persistence: intermittent Asthma complication type: uncomplicated Qualified Code(s): J45.20 - Mild intermittent asthma, uncomplicated
--- NOTE | 2019-07-18 16:20 | Discharge Summary ---
Date of Service July 18, 2019 Admission HPI Per Admitting Provider The patient is a 79 years old female with past medical history of carpal tunnel syndrome, atrial flutter A. fib's, osteoarthritis, lumbar disc degeneration, hypertension, peripheral neuropathy, asthma, presents with cellulitis of the left foot big toe with deep ulcer. Patient states that it is improved in comparison to how it was before. She was discharged on June 28, 2019 and she states that the wound is still persistent and eschar big toe of the left foot is appeared to be deeper. Patient reports pain everywhere. She appears to be septic. Patient states that she lives by herself and she is from her but he comes every day and takes care of her. Patient upfront stated that she is not going to penitentiary facility in case that she needs physical therapy. Patient denies fever, chest pain, shortness of breath, abdominal pain, frequency, urgency. Patient reports chills and feeling very weak. Patient states she does not exactly remember when her foot started to look like this and at this time smells foul. Labs are reviewed: Sodium 133, potassium 4.2, chloride 100, carbon dioxide 24, anion gap 8, BUN 19, creatinine 1.14, GFR 46, lactate 2.2, calcium 9.1, phosphorus 1.9, magnesium 1.8, total bilirubin 10, AST 10, ALT 11, alkaline phosphatase 126, troponin 0 0.015, protein 7.4, albumin 3, globulin 4.4, lipase 59. Urine appears to be cloudy, negative for leukocyte esterase and nitrates. Negative white blood cells. WBC 16.86, hemoglobin 11.8, hematocrit 34.6, platelets 212. There is a left shift of 15.11. Decision was made to admit patient to the [facility] floor left foot big toe ulcer/cellulitis/possible osteo-, hypomagnesemia, hypophosphatemia ambulatory dysfunction. Principal Diagnosis none Discharge Exam Constitutional WD/WN, vitals as above well developed; not ill appearing Eyes PERRL, conjunctivae normal, anicteric sclerae ENMT external ear and nose normal, oropharynx normal Neck trachea midline, no thyromegaly Respiratory normal respiratory effort, lungs clear to auscultation Cardiovascular Rate/Rhythm: regular rate and regular rhythm Heart Sounds: normal S1 and normal S2 Vessels: dorsalis pedis pulses present Gastrointestinal (Abdomen) normal bowel sounds, soft, nontender, no hepatosplenomegaly Musculoskeletal no cyanosis or clubbing, extremities motor strength 5/5 Skin no rashes, warm and dry Neurologic patellar DTR's 2+ bilat, sensation intact Psychiatric A+Ox3, euthymic affect Lymphatic no cervical or axillary lymphadenopathy Discharge Data Allergies Allergy/AdvReac Type Severity Reaction Status Date / Time Penicillins Allergy Intermediate RASH Verified 07/14/19 22:56 Sulfa (Sulfonamide Allergy Intermediate RASH Verified 07/14/19 22:56 Antibiotics) oxycodone AdvReac Intermediate "A BAD Verified 07/14/19 22:56 TRIP" Urea Allergy Unknown RASH Uncoded 07/12/19 15:07 Consultations 07/12/19 14:42 ED Decision to Admit Stat 07/12/19 19:57 Consult Wound Care Provider Routine 07/13/19 08:01 Consult Orthopedic Surgery Routine Procedures Performed Operation Date: 07/13/19 17:35 Actual Procedures p Left Great Toe Amputation with Incision and Drainage(Left) - Timo Hernandes Ordered Studies 07/13/19 00:01 MR foot LT w/o con Routine Hospital Course (1) Bacteremia: Morganella and MSSA bacteremia. Echo without vegetation. Vital signs relatively normal in ER and since admission therefore unclear diagnosis of sepsis on admission but not septic since I have had her as a patient. Will need IV ceftriaxone for 14 days (script with case management). Follow up blood cultures negative after 48 hours. US peripheral line placed 07/17. (2) Ulcer of great toe: As per osteomyelitis below. (3) Osteomyelitis: POD #5 surgical amputation of left great toe. Appreciate orthopedic management. Weightbearing as tolerated in left brace/shoe, pressure on heel. DVT prophylaxis recommended for 6 weeks, Dr Hernandes recommends ASA which she is already on. Since she has no ankle restrictions, agree ASA is adequate alone for DVT prophylaxis. (4) Cellulitis: Present on admission. None seen beyond dressing. (5) Peripheral neuropathy: Continue tramadol 50 mg p.o. nightly as needed for pain. (6) Hypertension: Continue lisinopril, diltiazem and metoprolol, lasix. BP mildly elevated on home meds but would just recommend outpatient f/u. (7) Asthma: Continue continue home inhalers albuterol 2 puffs 4 times daily as needed. (8) Paroxysmal atrial fibrillation: Not on anticoagulation secondary to chronic epistaxis. Currently in sinus rhythm. Rate controlling strategy with metoprolol and diltiazem. (9) DVT prophylaxis: Lovenox 40mg SQ daily (10) Discharge planning issues: Continue PT/OT. Patient is medically stable for discharge. Home health will administer IV antibiotics at home check the labs CBC, CMP, CRP ESR every 3 days and blood cultures x2 on July 19, 2019. (script with heel caser). Follow-up with PCP within a 7 days and follow-up with results. Wound care per home health. Please remove the PICC line after the antibiotics are completed, the full course. Total Time Total Time Spent Total Time Spent (In Minutes): over 30 min Discharge Plan Discharge Items Reason For Visit: LEFT BIG TOE ULCER Discharge Diagnosis: Osteomyelitis of the left big toe. Avoid stepping and left foot. Partial stepping on the heel. Partial left foot weightbearing status. Condition on Discharge: Good Health Concerns: Compliance Goals: Complete IV antibiotics. Activity: As commented below Lifting: Gradually increase as tolerated Non-emergency contact: Primary Care Provider Call non-emergency contact if: you have any medication questions, your symptoms worsen, your pain is not controlled, your pain is worsening, your pain is unusual for you, your pain is concerning for you, you have a fever and your temperature is above 101 Follow-up/Referrals: Viraj Vu DO [Physician] - 09/01/19 11:30 am (APPOINTMENT TO BECOME ESTABLISHED WITH A [facility] PRIMARY CARE PROVIDER Please, follow up with Dr. Viraj Vu on August 31 at 11:30 am. *The office is located at [address] [place] [address] in [place]. If you need to change/cancel this appointment, call the office at [phone].) Timo Hernandes [Surgeon] - Haresh Mirza MD [Primary Care Provider] - 07/19/19 11:45 am (Please, follow up with Dr. Mirza, tomorrow, ThursdayJuly 19 at 11:45 am. *If you need to change this appointment, call the office at [phone].) Diet: Heart Healthy Add Attending Provider Instructions: Left great toe: May begin daily dressing changes at 3 days after surgery. Keep a dressing in place until without drainage for greater than 24 hours. Should weight-bear only at the heel, using the postoperative shoe provided. Sutures were removed in orthopedic clinic in 10 to 14 days postoperatively. Home health to administer ceftriaxone 2 g IV daily for total 14 days as it is prescribed on the prescription. CBC, CMP, CRP, ESR check every 3 days, and blood cultures x2 to be checked on July 19, 2019. Remove the PICC line after completion of the IV antibiotics. Pending Studies at Discharge: No Stand-Alone Forms: [facility], Smoking Cessation Medications and DC Order Prescriptions: New Lactobacillus acidoph-L.bulgar [Floranex] 1 million cell Tablet 4 tab PO TIDM Qty: 120 RF: 0 Continued furosemide 40 mg tablet 20 mg PO BID RF: 0 polysaccharide iron complex [Ferrex 150] 150 mg iron capsule 150 mg PO HS RF: 0 aspirin [Aspir-Low] 81 mg Tablet,Delayed Release (Dr/Ec) 81 mg PO HS RF: 0 tramadol [Ultram] 50 mg tablet 50 mg PO Q6 PRN (Reason: Pain) RF: 0 magnesium oxide 400 mg (241.3 mg magnesium) tablet 400 mg PO BID RF: 0 ropinirole [Requip] 0.25 mg tablet 0.5 mg PO HS RF: 0 Premarin 0.625 mg tablet 0.625 mg PO HS RF: 0 omeprazole 20 mg capsule,delayed release(DR/EC) 20 mg PO HS RF: 0 diltiazem HCl [Cartia XT] 120 mg capsule,extended release 24hr 120 mg PO HS RF: 0 lisinopril [Zestril] 5 mg tablet 5 mg PO QAM RF: 0 metoprolol succinate [Toprol XL] 25 mg tablet extended release 24 hr 25 mg PO HS RF: 0 albuterol sulfate 90 mcg/actuation HFA aerosol inhaler 2 puff INHALATION QID PRN (Reason: Shortness Of Breath Or Wheezing) RF: 0 Admission Data Admit Date/Time: 07/12/19 16:04 Attending Provider: Yamileth Cardenas Admit Provider: Yamileth Cardenas Primary Care Provider: Haresh Mirza Other Providers: Yamileth Cardenas ; Rosalino Prince ; Timo Hernandes ; [facility] Other Interventions: Discharge Summary Assessment (RN) Last Done: 07/18/19 12:21 Coding Level of Care Code D/C Day Management >30 mins Diagnoses Bacteremia R78.81 Ulcer of great toe L97.529 Laterality: left Non-pressure ulcer stage: unspecified non-pressure ulcer stage Osteomyelitis M86.18 Osteomyelitis type: other acute Osteomyelitis location: other site Cellulitis L03.032 Laterality: left Site of cellulitis: extremity Site of cellulitis of extremity: toe Peripheral neuropathy G62.89 Peripheral neuropathy type: polyneuropathy, other Hypertension I10 Hypertension type: essential hypertension Asthma J45.20 Asthma severity: mild Asthma persistence: intermittent Asthma complication type: uncomplicated Paroxysmal atrial fibrillation I48.0 DVT prophylaxis Z29.9 Discharge planning issues Z02.9
--- NOTE | 2019-07-21 12:13 | Coding Query ---
SEPSIS To promote full compliance with coding requirements relating to patient care, physician participation is requested in all cases of review manager uncertainty. Please assist us with the question(s) below: In responding to this query, please exercise your independent professional judgement. The fact that a question is asked does not imply that any particular answer is desired or expected. We appreciate your clarification on this issue. Throughout the medical record, you have clearly documented a localized infection and your patient has clinical evidence of a generalized sepsis or severe sepsis. The term urosepsis is a nonspecific entity and is coded as an UTI. If the patient has sepsis, severe sepsis, from an urinary source or some other source, please clarify in your response below. The medical record reflects the following clinical findings: Patient admitted with nonpressure ulcer, cellulitis of leg. Dx'd with acute osteomyelitis and subsequent amputation of toe this admission. Progress notes mention both bacteremia and sepsis. Please check below the diagnosis you were treating. Thanks for your help! Hong Johnson [facility] ____ ( )Bacteremia (Nonspecific laboratory finding of bacteria in the blood) Specify Organism ( ) Present on Admission ( ) Not present on admission ( ) Unable to clinically determine ( X) Septicemia (Systemic disease associated with the presence of pathogenic microorganisms in the blood): Specify Organism ( ) Present on Admission ( ) Not present on admission (X ) Unable to clinically determine ( ) Sepsis Specify Organism Specify Associated Condition/Diagnosis ( ) Present on Admission ( ) Not present on admission ( ) Unable to clinically determine ( ) Severe Sepsis (Sepsis associated with acute organ dysfunction) Specify Organism Specify Associated Condition/Diagnosis ( ) Present on Admission ( ) Not present on admission ( ) Unable to clinically determine ( ) Septic Shock (Severe sepsis with acute circulatory failure, unexplained by other causes) ( ) Present on Admission ( ) Not present on admission () Unable to clinically determine ( ) Other, patient has: MTDD
== END 2019-07-18 19:17 | disposition home health service (06) | DRG 854 ==
LOC: ED 12:59 → SUATTDRO 16:04 → 2W 16:04 → 3N 07-14 16:21